=== PATIENT | male | born 1955 | race African-American/Black ===

== ENCOUNTER 2016-12-16 03:47 | Inpatient (IN) | payer MEDICARE ==
[~2016-12-16] VITALS: Ht 182.9 cm; Wt 103.6 kg
[2016-12-16 03:53] VITALS: BP 144/78; PULSE 82; RESP 16; TEMP 100.2; O2SAT 98
[2016-12-16] MEDS ORDERED: SODIUM CHLORIDE 0.9% FLUSH 10 ML FLUSH IVF PRN (04:15)
[2016-12-16] MEDS ORDERED: FURO40TA PO (04:21)
[2016-12-16] MEDS ORDERED: GABA800T PO (04:21)
[2016-12-16] MEDS ORDERED: MORP1TAB25 PO (04:23)
[2016-12-16] MEDS ORDERED: LOSA100T PO (04:23)
[2016-12-16] MEDS ORDERED: HYDR-3583 PO (04:23)
[2016-12-16] MEDS ORDERED: CARV12.52 PO (04:23)
[2016-12-16 04:26] VITALS: BP 144/72; PULSE 79; RESP 16; O2SAT 97
[2016-12-16 04:36] LABS: AUTOMATED NEUTROPHIL # 4.4 TH/MM3 (1.8-7.7); BASOPHIL # 0.1 TH/MM3 (0-0.2); BASOPHIL % 1.8 % (0.0-2.0); EOSINOPHIL # 0.5 TH/MM3 (0-0.4); EOSINOPHIL % 6.6 % (0.0-4.0); HEMATOCRIT 30.8 % (39.0-51.0); HEMO FLAGS DIFF FINAL; LYMPH % 27.4 % (9.0-44.0); LYMPHOCYTE # 2.1 TH/MM3 (1.0-4.8); MEAN CELL VOLUME 85.3 FL (80.0-100.0); MEAN CORPUSCULAR HEMOGLOBIN 27.4 PG (27.0-34.0); MEAN CORPUSCULAR HGB CONC 32.1 % (32.0-36.0); MONO % 7.1 % (0.0-8.0); NEUT % 57.1 % (16.0-70.0); PLATELET COUNT 238 TH/MM3 (150-450); RED BLOOD COUNT 3.61 MIL/MM3 (4.50-5.90); RED CELL DISTRIBUTION WIDTH 14.4 % (11.6-17.2); WHITE BLOOD COUNT 7.7 TH/MM3 (4.0-11.0)
--- NOTE | 2016-12-16 04:59 | PD ---
HPI Chief Complaint: Diabetic Time Seen by Provider: 04:31 Travel History International Travel<30 days: No Contact w/Intl Traveler<30days: No Traveled to known affect area: No History of Present Illness HPI Patient is a 61-year-old male with history of hypertension, hyperlipidemia, chronic pain, CHF, diabetes currently taking novalog 70/30, presents to ER with complaints of hypoglycemia. Patient reports that he is here visiting from [place] , reports that at baseline, he has the "shakes." Reports that today, he feels as if his "shakes" are worse. Reports that he checked his blood sugar and it was 98. Reports that this is low for him as his blood sugar normally runs at 150. Reports that he felt lightheaded today and "shakey" and thought that this could have been from having low blood sugars. Reports that when EMS arrived on scene, his BS was 88 which is very low for him. Reports that he has been eating and drinking like his normal self. Patient bs in triage was 123. Patient reports that he feels like his normal self, just "a little shakier than normal". wanted patient to be evaluated as they are leaving to go back home tomorrow around noon. PFSH Past Medical History High Cholesterol: Yes Congestive Heart Failure: Yes Diabetes: Yes Hypertension: Yes Medical other: Yes (hx of acute renal failure) Past Surgical History Surgical History: No Previous Surgery Allergies-Medications (Allergen,Severity, Reaction): Coded Allergies: No Known Allergies (Verified , 12/16/16) Reported Meds & Prescriptions Reported Meds & Active Scripts Active Reported Hydrocodone-Acetaminophen 10-325 mg Tab 1 Tab PO Q6H PRN Morphine ER (Morphine Sulfate) 30 Mg Tab 30 Mg PO Q8H Losartan (Losartan Potassium) 100 Mg Tab 100 Mg PO DAILY Carvedilol 12.5 Mg Tab 12.5 Mg PO BID Furosemide 40 Mg Tab 40 Mg PO BID Gabapentin 800 Mg Tab 800 Mg PO QID Review of Systems General / Constitutional: No: Fever Eyes: No: Visual changes HENT: No: Headaches Cardiovascular: No: Chest Pain or Discomfort Respiratory: No: Shortness of Breath Gastrointestinal: No: Abdominal Pain Genitourinary: No: Dysuria Musculoskeletal: No: Pain Skin: No Rash Neurologic: Positive: Weakness Psychiatric: No: Depression Endocrine: No: Polydipsia Hematologic/Lymphatic: No: Easy Bruising Physical Exam Narrative GENERAL: NAD, nontoxic SKIN: Focused skin assessment warm/dry. HEAD: Atraumatic. Normocephalic. EYES: Pupils equal and round. No scleral icterus. No injection or drainage. ENT: No nasal bleeding or discharge. Mucous membranes pink and moist. NECK: Trachea midline. No JVD. CARDIOVASCULAR: Regular rate and rhythm. No murmur appreciated. RESPIRATORY: No accessory muscle use. Clear to auscultation. Breath sounds equal bilaterally. GASTROINTESTINAL: Abdomen soft, non-tender, nondistended. Hepatic and splenic margins not palpable. MUSCULOSKELETAL: No obvious deformities. No clubbing. No cyanosis. No edema. NEUROLOGICAL: Awake and alert. No obvious cranial nerve deficits. Motor grossly within normal limits. Normal speech. PSYCHIATRIC: Appropriate mood and affect; insight and judgment normal. Data Data Last Documented VS Vital Signs Date Time Temp Pulse Resp B/P (MAP) Pulse Ox O2 Delivery O2 Flow Rate FiO2 12/16/16 04:26 79 16 144/72 (96) 97 Room Air 12/16/16 03:53 100.2 Orders Orders Electrocardiogram (12/16/16 04:10) Complete Blood Count With Diff (12/16/16 04:10) Comprehensive Metabolic Panel (12/16/16 04:10) Beta Hydroxybutyrate (Acetone) (12/16/16 04:10) Urinalysis - C+S If Indicated (12/16/16 04:10) Blood Glucose (12/16/16 04:10) Blood Glucose (12/16/16 04:40) Blood Glucose (12/16/16 04:10) Sodium Chloride 0.9% Flush (Ns Flush) (12/16/16 04:15) Bladder Scan PRN (12/16/16 04:50) Chest, Single Ap (12/16/16 04:58) Urinary Catheter Insert/Apply (12/16/16 05:04) Calcium Gluconate Inj (Calcium Gluconate (12/16/16 05:15) Admit Order (Ed Use Only) (12/16/16 06:23) Consult Nephrology (12/16/16 ) Labs Laboratory Tests Test 12/16/16 04:30 12/16/16 05:10 White Blood Count 7.7 TH/MM3 Red Blood Count 3.61 MIL/MM3 Hemoglobin 9.9 GM/DL Hematocrit 30.8 % Mean Corpuscular Volume 85.3 FL Mean Corpuscular Hemoglobin 27.4 PG Mean Corpuscular Hemoglobin Concent 32.1 % Red Cell Distribution Width 14.4 % Platelet Count 238 TH/MM3 Mean Platelet Volume 9.1 FL Neutrophils (%) (Auto) 57.1 % Lymphocytes (%) (Auto) 27.4 % Monocytes (%) (Auto) 7.1 % Eosinophils (%) (Auto) 6.6 % Basophils (%) (Auto) 1.8 % Neutrophils # (Auto) 4.4 TH/MM3 Lymphocytes # (Auto) 2.1 TH/MM3 Monocytes # (Auto) 0.6 TH/MM3 Eosinophils # (Auto) 0.5 TH/MM3 Basophils # (Auto) 0.1 TH/MM3 CBC Comment DIFF FINAL Differential Comment Blood Urea Nitrogen 92 MG/DL Creatinine 8.54 MG/DL Random Glucose 102 MG/DL Total Protein 7.8 GM/DL Albumin 3.8 GM/DL Calcium Level 7.2 MG/DL Alkaline Phosphatase 68 U/L Aspartate Amino Transf (AST/SGOT) 34 U/L Alanine Aminotransferase (ALT/SGPT) 24 U/L Total Bilirubin 0.2 MG/DL Sodium Level 140 MEQ/L Potassium Level 4.6 MEQ/L Chloride Level 105 MEQ/L Carbon Dioxide Level 27.2 MEQ/L Anion Gap 8 MEQ/L Estimat Glomerular Filtration Rate 8 ML/MIN Protein Corrected Calcium 6.9 MG/DL B-Hydroxybutyrate 0.13 MMOL/L Urine Color YELLOW Urine Turbidity CLEAR Urine pH 5.5 Urine Specific [place] 1.017 Urine Protein 100 mg/dL Urine Glucose (UA) NEG mg/dL Urine Ketones NEG mg/dL Urine Occult Blood TRACE Urine Nitrite NEG Urine Bilirubin NEG Urine Urobilinogen LESS THAN 2.0 MG/DL Urine Leukocyte Esterase NEG Urine RBC 2 /hpf Urine WBC 1 /hpf Urine Squamous Epithelial Cells <1 /hpf Urine Bacteria RARE /hpf Urine Hyaline Casts 11 /lpf Urine Mucus FEW /lpf Microscopic Urinalysis Comment CULT NOT INDICATED MDM Medical Decision Making Medical Screen Exam Complete: Yes Emergency Medical Condition: Yes Interpretation(s) EKG at 0419: NSR at 83bpm, qt/qtc: 374/414, no acute st or t wave changes Vital Signs Date Time Temp Pulse Resp B/P (MAP) Pulse Ox O2 Delivery O2 Flow Rate FiO2 12/16/16 04:26 79 16 144/72 (96) 97 Room Air 12/16/16 04:17 82 15 97 Room Air 12/16/16 03:53 100.2 82 16 144/78 (100) 98 Room Air Differential Diagnosis Differential includes hypoglycemia, electrolyte abnormality, UTI, ACS, arrhythmia, pneumonia Narrative Course Patient is a 61 year old male who presents to emergency room with complaints of possible hypoglycemic episode. Patient's blood sugar is 123, patient reports that he is feeling better at this time. Patient's only complaint is urinary retention. He does not have history of BPH, reports that he has had a history of renal insufficiency and reports that his perforating machine operator was thinking about starting dialysis on him. Given that patient has not urinated since last night, will check bladder scan. Basic labs ordered, will monitor patient on cardiac catheterization technologist. Bladder scan shows a PVR of 707, will place barry catheter. CBC & BMP Diagram 12/16/16 04:30 Total Protein 7.8, Albumin 3.8, Calcium Level 7.2 *L, Alkaline Phosphatase 68, Aspartate Amino Transf (AST/SGOT) 34, Alanine Aminotransferase (ALT/SGPT) 24, Total Bilirubin 0.2 BUN 92/Creatine 8.54 - patient with renal failure. thinks that patient's GFR is 12. Patient reports that he discuss possible dialysis with his perforating machine operator at home, he is unsure of what his baseline creatinine is. Patient' s is concerned as patient does not appear like his normal self. Discussed need for admission to the hospital. would like to discuss this with her as well as family who live in the area before making this decision Patient and family agreeable to admission case reviewed with Dr. Rivera who accepts patient to their service Nephrology consulted Diagnosis Primary Impression: Acute urinary retention Additional Impressions: Renal failure (ARF), acute on chronic Uremia Admitting Information Admitting Physician Requests: Admit Nancie Tate DO Dec 16, 2016 04:59
[2016-12-16 05:02] LABS: BETA-HYDROXYBUTYRATE 0.13 MMOL/L (0.00-0.39); BICARBONATE 27.2 MEQ/L (21.0-32.0); POTASSIUM 4.6 MEQ/L (3.5-5.1); TOTAL BILIRUBIN ADULT 0.2 MG/DL (0.2-1.0)
[2016-12-16 05:09] LABS: CALCIUM-PROTEIN CORRECTED 6.9 MG/DL (8.5-10.1)
[2016-12-16] MEDS ORDERED: CALCIUM GLUCONATE INJ 1 GM in DEXTROSE 5% IN WATER 100ML INJ 100 ML IV ONE ×2 (05:15)
[2016-12-16 05:28] LABS: BACTERIA, URINE RARE /hpf; BLOOD, URINE TRACE (NEG); GLUCOSE,URINE NEG (NEG); HYALINE CAST, URINE 11 /lpf (RARE); KETONE, URINE NEG (NEG); MUCUS URINE FEW /lpf (OCC); NITRITE,URINE NEG (NEG); PH, URINE 5.5 (5.0-8.5); SQUAMOUS EPITHELIAL CELL URINE <1 /hpf (0-5); URINE COLOR YELLOW (YELLW/STRAW)
[2016-12-16 05:29] LABS: COMMENT (UR) CULT NOT INDICATED; CULTURE IF INDICATED CULT NOT INDICATED
--- NOTE | 2016-12-16 06:07 | RADRPT ---
EXAM DATE/TIME: 12/16/2016 05:38 [facility] COMPARISON: No previous studies available for comparison. INDICATIONS : Palpitations. MEDICAL HISTORY : Diabetes mellitus type II. SURGICAL HISTORY : None. ENCOUNTER: Initial ACUITY: 1 day PAIN SCORE: 0/10 LOCATION: Bilateral chest FINDINGS: A single view of the chest demonstrates the lungs to be symmetrically aerated without evidence of mas s, infiltrate or effusion. The cardiomediastinal contours are unremarkable. Osseous structures are intact. CONCLUSION: 1. No acute findings. Minimal dependent atelectasis in the lungs. Herb Grijalva MD on December 16, 2016 at 6:04 Board Certified Radiologist. This report was verified electronically.
[2016-12-16] MEDS ORDERED: SODIUM CHLORIDE 0.9% FLUSH 10 ML FLUSH IV FLUSH PRN (06:30)
[2016-12-16] MEDS ORDERED: NALOXONE HCL 0.4 MG/ML AMP IV PRN (06:30)
[2016-12-16] MEDS ORDERED: SENNOSIDES 8.6 MG TAB PO PRN (06:30)
[2016-12-16] MEDS ORDERED: ONDANSETRON HCL 4 MG/2 ML VIAL IVP PRN (06:30)
[2016-12-16] MEDS ORDERED: ACETAMINOPHEN 325 MG TAB PO PRN (06:30)
[2016-12-16] MEDS ORDERED: DEXTROSE 50% IN WATER 50 ML VIAL(D50) IV PRN (06:30)
[2016-12-16] MEDS ORDERED: LACTULOSE SYRUP 20 GM/30 ML CUP PO PRN (06:30)
[2016-12-16] MEDS ORDERED: GLUCAGON 1 MG/ML VIAL OTHER PRN (06:30)
[2016-12-16] MEDS: INSULIN ASPART SUPPLEMENTAL SCALE SQ SCH ×4 (07:00→22:14)
[2016-12-16 07:39] LABS: CKMB 15.1 NG/ML (0.5-3.6)
--- NOTE | 2016-12-16 07:49 | EKG ---
Date Performed: 12/16/2016 Time Performed: 04:19:03 PTAGE: 61 years EKG: Sinus rhythm NORMAL ECG NO PREVIOUS TRACING DOCTOR: John Sarah Interpretating Date/Time 12/16/2016 07:47:45
[2016-12-16] MEDS: SODIUM CHLORIDE 0.9% FLUSH 10 ML FLUSH IV FLUSH SCH ×2 (07:53→22:15)
[2016-12-16] MEDS: CARVEDILOL 12.5 MG TAB PO SCH ×2 (07:53→22:12)
[2016-12-16 07:54] VITALS: BP 162/95; PULSE 78; RESP 16; TEMP 98.8; O2SAT 96
[2016-12-16] MEDS: DOCUSATE SODIUM 50 MG/SENNA 8.6 MG TAB PO SCH ×2 (07:54→22:14)
--- NOTE | 2016-12-16 09:23 | HHI.HP ---
[facility] Non-Staff Admission Diagnosis Uremia, Acute Renal Failure Diagnoses: Chief Complaint: jerking movements Travel History International Travel<30 Days: No Contact w/Intl Traveler <30 Da: No Traveled to Known Affected Are: No History of Present Illness Written by Jessica Cruz, acting as scribe for Dr. Fabian on 12/16/16 at 09:15. This note was transcribed by scribADRIAN Bergman. I, Dr. Geovany Fabian personally performed the history, physical exam, and medical decision making; and confirmed the accuracy of the information in the transcribed note. Authenticated by Dr. Geovany Fabian on 12/16/16 at 21:35. 61-year-old male visiting from [place] with history of diabetes mellitus, hypertension, chronic kidney disease unknown baseline, hyperlipidemia, CHF, presents with a 2 day history of body jerking/twitching. The patient is currently awake, alert, oriented to person, states he is in [place] but needs a lot of cues to be able to say he's in a hospital, then states the date is October or November 2016. He is a very poor historian and continuously repeats that he's here for full body jerking since Thursday 12/14 and that is why he came to the hospital. He is unable to give a timeline of events leading up to his admission. Most of the history supplemented with information from EMR. Per ER MD 's note, the patient's blood sugars have been running low for him, in the 80s- 90s. His blood sugars are normally around 150. He has felt lightheaded and shaky recently which he believes is secondary to the low blood sugars. Denies any recent decreased oral intake, nausea/vomiting, or diarrhea. According to the patient and his , he has been diagnosed with CKD, but unknown baseline. He follows with a correctional guard in [place] and have discussed dialysis in the past but currently not on dialysis. While in the ER, the patient complained of some urinary retention, post void residual bladder scan done, showed over 700cc urine , therefore Rodriguez catheter placed. The patient has no other medical complaints at this time including no fevers/chills, chest pain, shortness of breath, or abdominal pain. Review of Systems ROS Limitations: Altered Mental Status, Poor Historian Except as stated in HPI: all other systems reviewed are Neg Past Family Social History Past Medical History Hypertension Hyperlipidemia Diabetes mellitus CHF Chronic kidney disease Chronic back pain Past Surgical History Denies any prior surgeries. Reported Medications Hydrocodone-Acetaminophen 10-325 mg Tab 1 Tab PO Q6H PRN Morphine ER (Morphine Sulfate) 30 Mg Tab 30 Mg PO Q8H Losartan (Losartan Potassium) 100 Mg Tab 100 Mg PO DAILY Carvedilol 12.5 Mg Tab 12.5 Mg PO BID Furosemide 40 Mg Tab 40 Mg PO BID Gabapentin 800 Mg Tab 800 Mg PO QID Allergies: Coded Allergies: No Known Allergies (Verified , 12/16/16) Active Ordered Medications Current Medications Medications (Trade) Dose Ordered Sig/Mick Route Start Time Stop Time Status Last Admin (D50w (Vial) Inj) 50 ml UNSCH PRN IV 12/16/16 06:30 (Glucagon Inj) 1 mg UNSCH PRN OTHER 12/16/16 06:30 (NovoLOG SUPPLEMENTAL SCALE) 1 ACHS SLIDING SCALE SQ 12/16/16 07:00 12/16/16 11:03 (Coreg) 12.5 mg BID PO 12/16/16 09:00 12/16/16 07:53 ([place] 10-325 Mg) 0.5 tab Q6H PRN PO 12/16/16 06:30 (NS Flush) 2 ml UNSCH PRN IV FLUSH 12/16/16 06:30 (NS Flush) 2 ml BID IV FLUSH 12/16/16 09:00 12/16/16 07:53 (Tylenol) 650 mg Q4H PRN PO 12/16/16 06:30 (Zofran Inj) 4 mg Q6H PRN IVP 12/16/16 06:30 (Narcan Inj) 0.4 mg UNSCH PRN IV 12/16/16 06:30 (Giovana-Colace) 1 tab BID PO 12/16/16 09:00 12/16/16 07:54 (Senokot) 17.2 mg Q12H PRN PO 12/16/16 06:30 (Lactulose Liq) 30 ml DAILY PRN PO 12/16/16 06:30 Sodium Chloride 1,000 ml @ 125 mls/hr Q8H IV 12/16/16 09:30 12/16/16 17:29 12/16/16 11:04 Family History Denies any family history of heart disease, diabetes, or cancers. Social History Denies any tobacco, alcohol, or illicit drug use. Visiting from [facility] Physical Exam Vital Signs Vital Signs Date Time Temp Pulse Resp B/P (MAP) Pulse Ox O2 Delivery O2 Flow Rate FiO2 12/16/16 07:54 98.8 78 16 162/95 (117) 96 Room Air 12/16/16 04:26 79 16 144/72 (96) 97 Room Air 12/16/16 04:17 82 15 97 Room Air 12/16/16 03:53 100.2 82 16 144/78 (100) 98 Room Air Physical Exam GENERAL: Well-nourished, well-developed middle aged AA male patient in [facility]. SKIN: Warm and dry. No rash. HEAD: Normocephalic. Atraumatic. EYES: Pupils equal and round. No scleral icterus. No injection or drainage. ENT: No nasal bleeding or discharge. Mucous membranes pink and moist. NECK: Supple. Trachea midline. CARDIOVASCULAR: Regular rate and rhythm. S1, S2 noted. No murmur appreciated. RESPIRATORY: No accessory muscle use. Clear to auscultation. Breath sounds equal bilaterally. GASTROINTESTINAL: Abdomen soft, non-tender, nondistended. Normoactive bowel sounds x4. MUSCULOSKELETAL: No obvious deformities. Trace bilateral lower extremity edema. NEUROLOGICAL: Awake and alert. No obvious cranial nerve deficits. Motor grossly within normal limits. 5/5 muscle strength in bilateral upper and lower extremities. Normal speech. PSYCHIATRIC: Calm mood however intermittently slow to answer questions, poor insight currently. Laboratory Laboratory Tests Test 12/16/16 04:30 12/16/16 05:10 12/16/16 06:40 White Blood Count 7.7 Red Blood Count 3.61 Hemoglobin 9.9 Hematocrit 30.8 Mean Corpuscular Volume 85.3 Mean Corpuscular Hemoglobin 27.4 Mean Corpuscular Hemoglobin Concent 32.1 Red Cell Distribution Width 14.4 Platelet Count 238 Mean Platelet Volume 9.1 Neutrophils (%) (Auto) 57.1 Lymphocytes (%) (Auto) 27.4 Monocytes (%) (Auto) 7.1 Eosinophils (%) (Auto) 6.6 Basophils (%) (Auto) 1.8 Neutrophils # (Auto) 4.4 Lymphocytes # (Auto) 2.1 Monocytes # (Auto) 0.6 Eosinophils # (Auto) 0.5 Basophils # (Auto) 0.1 CBC Comment DIFF FINAL Differential Comment Blood Urea Nitrogen 92 Creatinine 8.54 Random Glucose 102 Total Protein 7.8 Albumin 3.8 Calcium Level 7.2 Alkaline Phosphatase 68 Aspartate Amino Transf (AST/SGOT) 34 Alanine Aminotransferase (ALT/SGPT) 24 Total Bilirubin 0.2 Sodium Level 140 Potassium Level 4.6 Chloride Level 105 Carbon Dioxide Level 27.2 Anion Gap 8 Estimat Glomerular Filtration Rate 8 Protein Corrected Calcium 6.9 Total Creatine Kinase 1302 Creatine Kinase MB 15.1 Creatine Kinase MB % 1.2 B-Hydroxybutyrate 0.13 Urine Color YELLOW Urine Turbidity CLEAR Urine pH 5.5 Urine Specific [place] 1.017 Urine Protein 100 Urine Glucose (UA) NEG Urine Ketones NEG Urine Occult Blood TRACE Urine Nitrite NEG Urine Bilirubin NEG Urine Urobilinogen LESS THAN 2.0 Urine Leukocyte Esterase NEG Urine RBC 2 Urine WBC 1 Urine Squamous Epithelial Cells <1 Urine Bacteria RARE Urine Hyaline Casts 11 Urine Mucus FEW Microscopic Urinalysis Comment CULT NOT INDICATED Ammonia 57 Result Diagram: 12/16/1642912/16/16429 Caprini VTE Risk Assessment Caprini VTE Risk Assessment: Mod/High Risk (score >= 2) Caprini Risk Assessment Model Point Value = 1 Point Value = 2 Point Value = 3 Point Value = 5 Age 41-60 Minor surgery BMI > 25 kg/m2 Swollen legs Varicose veins or History of unexplained or recurrent spontaneous Oral contraceptives or hormone replacement Sepsis (< 1 month) Serious lung disease, including pneumonia (< 1 month) Abnormal pulmonary function Acute myocardial infarction Congestive heart failure (< 1 month) History of inflammatory bowel disease Medical patient at bed rest Age 61-74 Arthroscopic surgery Major open surgery (> 45 min) Laparoscopic surgery (> 45 min) Malignancy Confined to bed (> 72 hours) Immobilizing plaster cast Central venous access Age >= 75 History of VTE Family history of VTE Factor V Leiden Prothrombin [id number] Lupus anticoagulant Anticardiolipin antibodies Elevated serum homocysteine Heparin-induced thrombocytopenia Other congenital or acquired thrombophilia Stroke (< 1 month) Elective arthroplasty Hip, pelvis, or leg fracture Acute spinal cord injury (< 1 month) Prophylaxis Regimen Total Risk Factor Score Risk Level Prophylaxis Regimen 0-1 Low Early ambulation 2 Moderate Order ONE of the following: *Sequential Compression Device (SCD) *Heparin 5000 units SQ BID 3-4 Higher Order ONE of the following medications: *Heparin 5000 units SQ TID *Enoxaparin/Lovenox 40 mg SQ daily (WT < 150 kg, CrCl > 30 mL/min) *Enoxaparin/Lovenox 30 mg SQ daily (WT < 150 kg, CrCl > 10-29 mL/min) *Enoxaparin/Lovenox 30 mg SQ BID (WT < 150 kg, CrCl > 30 mL/min) AND/OR *Sequential Compression Device (SCD) 5 or more Highest Order ONE of the following medications: *Heparin 5000 units SQ TID (Preferred with Epidurals) *Enoxaparin/Lovenox 40 mg SQ daily (WT < 150 kg, CrCl > 30 mL/min) *Enoxaparin/Lovenox 30 mg SQ daily (WT < 150 kg, CrCl > 10-29 mL/min) *Enoxaparin/Lovenox 30 mg SQ BID (WT < 150 kg, CrCl > 30 mL/min) AND *Sequential Compression Device (SCD) Assessment and Plan Problem List: (1) Rhabdomyolysis ICD Code: M62.82 - Rhabdomyolysis (2) Acute metabolic encephalopathy ICD Code: G93.41 - Metabolic encephalopathy (3) Renal failure (ARF), acute on chronic ICD Code: N17.9 - Acute kidney failure, unspecified; N18.9 - Chronic kidney disease, unspecified Status: Acute (4) Acute urinary retention ICD Code: R33.8 - Other retention of urine Status: Acute (5) Uremia ICD Code: N19 - Unspecified kidney failure Status: Acute Assessment and Plan 61-year-old male visiting from [place] with history of diabetes mellitus, hypertension, chronic kidney disease unknown baseline, hyperlipidemia, CHF, presents with a 2 day history of body jerking/twitching. Acute Renal Failure: with hx of CKD, unknown baseline however has been discussing with his correctional guard in [place] regarding starting dialysis. BUN 92, Cr 8.54, GFR 8 upon arrival; only previous labs available is Cr 1.2 in 2001. -give gentle IVF and recheck BMP -avoid nephrotoxins, holding patient's Losartan -Check renal U/S -consult nephrology Urinary Retention: patient with post void residual over 700cc in the ED, Rodriguez placed. -continue Rodriguez -check renal U/S as above -monitor Is&Os Metabolic Encephalopathy: suspect secondary to ARF as above. +uremia, + hyperammonemia. -treat renal failure as above -monitor neuro checks Acute Hypocalcemia with [place]: Protein Corrected [place] 6.9. Patient's main complaint is full body jerks/twitches x2 days. Suspect secondary to hypocalcemia -check EEG to rule out seizure focus -Given IV Calcium Gluconate x2G -check magnesium -Monitor on telemetry -Repeat BMP, replace as needed Rhabdomyolysis: with renal failure as above. CPK 1302. -give IVF hydration x1L -monitor CPK Diabetes Mellitus: with hypoglycemia. -holding patient's insulin -monitor Accu-checks, cover with SSI HTN/CHF: chronic, stable -continue patient's home medications -clonidine prn -monitor BP, adjust antihypertensives as needed DVT Prophylaxis: teds/SCDs; hold chemoprophylaxis until evaluation by nephrology Discussed Condition With Patient, [employer] Jessica Cruz PA-C Dec 16, 2016 09:23 Mahi Fabian DO Dec 16, 2016 21:35
[2016-12-16] MEDS ORDERED: SODIUM CHLOR 0.9% 1000 ML INJ 1,000 ML IV SCH (09:30)
[2016-12-16] MEDS ORDERED: CALCIUM GLUCONATE INJ 1 GM in SODIUM CHLORIDE 0.9% INJ 100 ML IV ONE (10:30)
--- NOTE | 2016-12-16 13:55 | RADRPT ---
EXAM DATE/TIME: 12/16/2016 13:16 [facility] COMPARISON: No previous studies available for comparison. INDICATIONS : Increased Bun and Creatinine. MEDICAL HISTORY : Hypertension. Congestive heart failure. ARF. Hyperlipidemia. Diabetic. SURGICAL HISTORY : None. ENCOUNTER: Initial ACUITY: 1 day PAIN SCORE: 0/10 LOCATION: Bilateral flank MEASUREMENTS: RIGHT KIDNEY: 10.7 x 4.4 x 5.0 cm LEFT KIDNEY: 10.6 x 5.3 x 5.2 cm FINDINGS: RIGHT KIDNEY: Renal cortex is normal in thickness and increased echotexture. No hydronephrosis, stone, or mass. LEFT KIDNEY: Renal cortex is normal in thickness and increased echotexture. No hydronephrosis, stone, or mass. BLADDER: Rodriguez catheter present decompressing the urinary bladder. CONCLUSION: 1. Echogenic kidneys which can be seen with medical renal disease. 2. Urinary bladder decompressed by Rodriguez catheter. Jeffrey Amor MD on December 16, 2016 at 13:52 Board Certified Radiologist. This report was verified electronically.
[2016-12-16 14:43] LABS: BICARBONATE 24.6 MEQ/L (21.0-32.0); MAGNESIUM 2.7 MG/DL (1.5-2.5); POTASSIUM 4.5 MEQ/L (3.5-5.1)
[2016-12-16 16:18] VITALS: BP 138/73; PULSE 78; RESP 16; TEMP 99.3; O2SAT 98
--- NOTE | 2016-12-16 16:32 | MG ---
cc: HAMZAH MARMOLEJO MD Lab No: Date: 12/16/2016 Age: Sex: M Race: DATE OF [address] Emerson. PAST MEDICAL HISTORY 1. Admitted for hypoglycemia, shakes, felt lightheaded. 2. History of hypercholesteremia. 3. Hypertension. 4. Diabetes. 5. Congestive heart failure. 6. And chronic pain. MEDICATIONS 1. Insulin aspart. 2. Senokot. 3. Coreg. DESCRIPTION There is slowing of the background activity bilateral and symmetrica in the theta range with occasional slowing in the the bilateral frontal in the delta range. During the recording there are evident triphasic waves,with occasional spikes and sharp waves. Hyperventilation was not done. Photic stimulation did not elicit driving response. There were no electrographic seizures noted during the recording. INTERPRETATION This is an abnormal awake EEG. There is frontal intermittent rhythmic delta activity (FIRDA). There is generalized and background slowing that may indicate an encephalopathic pattern. The triphasic waves may be related to metabolic encephalopathy. There are intermittent epileptogenic activity during the recording. There was no electrographic seizure. Clinical correlation is recommended. Hamzah Marmolejo MD RGO/KK /4:08 PM /4:15 PM MTDD
[2016-12-16 17:01] VITALS: BP 143/72; PULSE 83; RESP 20; TEMP 98.7; O2SAT 96
--- NOTE | 2016-12-16 19:42 | MB ---
cc: ALESSIO RECINOS MD DATE OF CONSULTATION 12/16/2016 REASON FOR CONSULTATION End-stage renal disease with very high BUN and creatinine. HISTORY OF PRESENT ILLNESS This is a 61-year-old male with past medical history of hypertension, diabetes mellitus, chronic kidney disease, hyperlipidemia, ischemic heart disease, congestive heart failure, came with jerking movements of upper arms and shoulder off and on. I was called to see the patient because of high BUN and creatinine. The patient has known history of chronic kidney disease. He has been following with his food vendor in [place] and was discussed about the possibility of dialysis and he was to go on peritoneal dialysis. The patient has creatinine of around 4 according to the after she spoke to his food vendor when he was seen by his food vendor last time. The patient has urinary retention in the ER and it was found that he has 700 mL of urine after the Rodriguez catheter was placed, so there must be an element of acute kidney injury because of that. The patient denies any nausea or vomiting but his appetite is not very good. He does not have any shortness of breath and according to the sometimes he seems to be a little bit more confused. Also when he came in here it was found that his calcium was low and he was given some intravenous calcium. PAST MEDICAL HISTORY 1. Hypertension. 2. Diabetes mellitus. 3. Chronic kidney disease. 4. Hyperlipidemia. 5. Ischemic heart disease. 6. Congestive heart failure. 7. Chronic back pain. PAST SURGICAL HISTORY There is no history of surgery. REVIEW OF SYSTEMS The patient has generalized weakness, feeling tired. There is mild nausea. No vomiting. He has decreased appetite and been feeling weak and tired and sleepy most of the time. There is no history of nausea, vomiting or diarrhea. He denies any dysuria or difficulty passing urine but he has almost 700 mL of urine came out after he has a Rodriguez catheter inserted. The patient has history of jerky movement of his upper arm and shoulder going on off and on for last 2 days and that was one of the reasons he was brought to the emergency department. The patient lives in [place], [place] and visiting here and was supposed to go back today but they stayed longer now because he is in the hospital. SOCIAL HISTORY The patient is , lives in [place] and there is no history of smoking or alcoholism. FAMILY HISTORY Noncontributory. ALLERGIES NO KNOWN DRUG ALLERGIES. MEDICATIONS Currently he is gettin. Normal saline at 125 an hour. 2. Coreg 12.5 mg b.i.d. 3. Giovana-Colace 1 tablet b.i.d. 4. Insulin aspart sliding scale. 5. Zofran. 6. Narcan as needed. 7. He received calcium gluconate IV. IMAGING STUDIES The patient has chest x-ray done which shows that he has no acute findings. Some atelectasis in the lung. Ultrasound of the kidneys was done which shows that both kidneys are normal in size and echogenic and urinary bladder is decompressed by the Rodriguez catheter. ASSESSMENT/PLAN 1. Chronic kidney disease and some acute worsening. 2. Elevated creatinine kinase with some rhabdomyolysis. 3. Hypocalcemia. 4. Possibility of uremia. 5. Diabetes mellitus. 6. Hypertension. 7. Anemia. The patient has chronic kidney disease and his baseline creatinine was around 4 and with this acute worsening and now could be related to urinary retention or rhabdomyolysis. He has very high BUN and creatinine, although there is some improvement in the creatinine to 7.8 after the first reading of 8.4. If he has significant improvement then possibly he will not need dialysis, otherwise he will need to start on dialysis. I have discussed this with the and they still want him to go for peritoneal dialysis so we can start him on hemodialysis here and he can get the peritoneal dialysis catheter once he goes back to [place]. The wanted me to talk to his primary food vendor so I will give him a call and discuss the plan with him. Thank you for the consultation and I will follow the patient while he is in the hospital. MD ANÍBAL Pimentel/ABDIRAHMAN /4:44 PM /7:25 PM
[2016-12-16 22:02] VITALS: BP 172/81; PULSE 79; RESP 18; TEMP 99.3; O2SAT 99
[2016-12-16] MEDS: CALCIUM/VITAMIN D 250 MG/125 U TAB PO SCH (22:14)
[2016-12-17] VITALS (16 sets, daily range): BP systolic 140–217; BP diastolic 78–100; PULSE 65–86; RESP 18–21; TEMP 98.3–99.3; O2SAT 92–100
[2016-12-17] MEDS: INSULIN ASPART SUPPLEMENTAL SCALE SQ SCH ×4 (06:22→22:04)
[2016-12-17 07:51] LABS: BICARBONATE 25.3 MEQ/L (21.0-32.0); POTASSIUM 4.5 MEQ/L (3.5-5.1)
[2016-12-17 08:03] LABS: AUTOMATED NEUTROPHIL # 5.5 TH/MM3 (1.8-7.7); BASOPHIL % 0.4 % (0.0-2.0); EOSINOPHIL # 0.4 TH/MM3 (0-0.4); EOSINOPHIL % 4.6 % (0.0-4.0); HEMO FLAGS DIFF FINAL; LYMPH % 26.2 % (9.0-44.0); LYMPHOCYTE # 2.4 TH/MM3 (1.0-4.8); MEAN CELL VOLUME 85.8 FL (80.0-100.0); MEAN CORPUSCULAR HEMOGLOBIN 27.1 PG (27.0-34.0); MEAN CORPUSCULAR HGB CONC 31.6 % (32.0-36.0); MONO % 9.2 % (0.0-8.0); NEUT % 59.6 % (16.0-70.0); PLATELET COUNT 198 TH/MM3 (150-450); RED BLOOD COUNT 3.49 MIL/MM3 (4.50-5.90); RED CELL DISTRIBUTION WIDTH 14.2 % (11.6-17.2); WHITE BLOOD COUNT 9.3 TH/MM3 (4.0-11.0)
--- NOTE | 2016-12-17 08:06 | HHI.PR ---
Subjective Remarks Follow up for acute on CKD, hypocalcemia, body jerking movements. Patient is currently doing much better. Except for minor jerking movements, his body jerking movements have improved significantly. No chest pain, shortness of breath, fever, chills. at bedside. Objective Vitals Vital Signs Date Time Temp Pulse Resp B/P (MAP) Pulse Ox O2 Delivery O2 Flow Rate FiO2 12/17/16 07:33 98.6 79 20 217/98 (137) 96 12/17/16 07:30 200/100 (133) 12/17/16 03:45 150/78 (102) 12/17/16 03:40 98.7 78 18 182/88 (119) 92 12/17/16 03:00 74 12/17/16 00:46 140/82 (101) 168/78 (108) 12/17/16 00:27 99.3 76 18 188/89 (122) 99 12/17/16 00:12 74 12/16/16 22:02 99.3 79 18 172/81 (111) 99 12/16/16 17:03 12/16/16 17:01 98.7 83 20 143/72 (95) 96 12/16/16 16:18 99.3 78 16 138/73 (94) 98 Room Air I/O 12/16/16 12/16/16 12/16/16 12/17/16 12/17/16 12/17/16 06:59 14:59 22:59 06:59 14:59 22:59 Intake Total 200 ml 2100 ml 480 ml Output Total 450 ml 900 ml 1350 ml Balance -250 ml 1200 ml -870 ml Intake Oral 200 ml 480 ml IV Total 200 ml 1900 ml Output Urine Total 450 ml 900 ml 1350 ml Bladder Scan Volume Amount 707 ml 707 ml Result Diagram: 12/16/16 0430 12/17/16 0652 Imaging Last Impressions Chest X-Ray 12/16/16 0458 Signed Impressions: Service Date/Time: Friday, December 16, 2016 05:38 - CONCLUSION: 1. No acute findings. Minimal dependent atelectasis in the lungs. Herb Grijalva MD Renal Ultrasound 12/16/16 0000 Signed Impressions: Service Date/Time: Friday, December 16, 2016 13:16 - CONCLUSION: 1. Echogenic kidneys which can be seen with medical renal disease. 2. Urinary bladder decompressed by Rodriguez catheter. Jeffrey Amor MD Objective Remarks GENERAL: Alert, NAD. SKIN: Warm and dry. HEAD: Normocephalic. EYES: No scleral icterus. No injection or drainage. NECK: Supple, trachea midline. No JVD or lymphadenopathy. CARDIOVASCULAR: Regular rate and rhythm without murmurs, gallops, or rubs. RESPIRATORY: Breath sounds equal bilaterally. No accessory muscle use. GASTROINTESTINAL: Abdomen soft, non-tender, nondistended. MUSCULOSKELETAL: No cyanosis, or edema. BACK: Nontender without obvious deformity. No CVA tenderness. Procedures EEG 12/16/2016 INTERPRETATION This is an abnormal awake EEG. There is frontal intermittent rhythmic delta activity (FIRDA). There is generalized and background slowing that may indicate an encephalopathic pattern. The triphasic waves may be related to metabolic encephalopathy. There are intermittent epileptogenic activity during the recording. There was no electrographic seizure. Clinical correlation is recommended. A/P Problem List: (1) Rhabdomyolysis ICD Code: M62.82 - Rhabdomyolysis (2) Acute metabolic encephalopathy ICD Code: G93.41 - Metabolic encephalopathy (3) Renal failure (ARF), acute on chronic ICD Code: N17.9 - Acute kidney failure, unspecified; N18.9 - Chronic kidney disease, unspecified Status: Acute (4) Acute urinary retention ICD Code: R33.8 - Other retention of urine Status: Acute (5) Uremia ICD Code: N19 - Unspecified kidney failure Status: Acute Assessment and Plan 61-year-old male visiting from [place] with history of diabetes mellitus, hypertension, chronic kidney disease unknown baseline, hyperlipidemia, CHF, presents with a 2 day history of body jerking/twitching. Acute Renal Failure: with hx of CKD, unknown baseline however has been discussing with his supervisor engine assembly in [place] regarding starting dialysis. BUN 92, Cr 8.54, GFR 8 upon arrival; only previous labs available is Cr 1.2 in 2001. - Creatinine is slightly improved. However, patient likely needs dialysis per Nephrology. - avoid nephrotoxins, holding patient's Losartan - renal U/S is consistent with medical renal disease. Urinary Retention: patient with post void residual over 700cc in the ED, Rodriguez placed. - continue Rodriguez Metabolic Encephalopathy: suspect secondary to ARF as above. +uremia, + hyperammonemia. - Expect improvements with dialysis. - monitor neuro checks - EEG is abnormal. We will repeat EEG today. If abnormal, we will consult Neurology for seizure. Acute Hypocalcemia with Tetany: Protein Corrected Caclium 6.9. Patient's main complaint is full body jerks/twitches x2 days. Suspect secondary to hypocalcemia -Given IV Calcium Gluconate x2g. Calcium improved to 8.1 corrected. - magnesium 2.7. -Monitor on telemetry Rhabdomyolysis: with renal failure as above. CPK 1302 --> 760. Diabetes Mellitus: with hypoglycemia. -holding patient's insulin -monitor Accu-checks, cover with SSI Hypertension - continue Labetalol 100mg Q12hrs, Nifedipine 60mg Qday. Full code. SCDs. Discussed with RN, obstetrical tech. Mahi Fabian DO Dec 17, 2016 08:06
[2016-12-17 08:09] LABS: CKMB 5.2 NG/ML (0.5-3.6)
[2016-12-17] MEDS ORDERED: cloNIDine HCL 0.1 MG TAB PO PRN ×2 (08:15→09:45)
[2016-12-17] MEDS: CARVEDILOL 12.5 MG TAB PO SCH ×2 (08:59→20:21)
[2016-12-17] MEDS: NIFEdipine 60 MG SUSTAINED RELEASE TAB PO SCH (08:59)
[2016-12-17] MEDS: CALCIUM/VITAMIN D 250 MG/125 U TAB PO SCH ×2 (09:00→20:20)
[2016-12-17] MEDS: DOCUSATE SODIUM 50 MG/SENNA 8.6 MG TAB PO SCH ×2 (09:00→20:25)
[2016-12-17] MEDS: SODIUM CHLORIDE 0.9% FLUSH 10 ML FLUSH IV FLUSH SCH ×2 (09:01→20:21)
[2016-12-17] MEDS ORDERED: SODIUM CHLOR 0.9% 1000 ML INJ 1,000 ML IV PRN ×2 (09:38)
[2016-12-17] MEDS ORDERED: ACETAMINOPHEN 325 MG TAB PO PRN (09:45)
[2016-12-17] MEDS ORDERED: HEPARIN SODIUM - IV 10,000 UNITS/10 ML VIAL IVF PRN (09:45)
[2016-12-17] MEDS ORDERED: ALBUMIN HUMAN 25% 25 GM/100 ML BAGP IV PRN (09:45)
[2016-12-17] MEDS ORDERED: SODIUM CHLORIDE 0.9% FLUSH 10 ML FLUSH IV FLUSH PRN (09:45)
[2016-12-17] MEDS ORDERED: GELATIN 12 MM/7 MM FOAM TOP PRN (09:45)
[2016-12-17] MEDS ORDERED: ONDANSETRON HCL 4 MG/2 ML VIAL IV PRN (09:45)
[2016-12-17] MEDS ORDERED: EPOETIN ALFA 10,000 UNITS/ML VIAL IV PRN (09:45)
[2016-12-17] MEDS ORDERED: NITROGLYCERIN 0.4 MG SL 25 TABS/BTL SL PRN (09:45)
[2016-12-17] MEDS ORDERED: MANNITOL 12.5 GM/50 ML VIAL IV PRN (09:45)
[2016-12-17] MEDS ORDERED: diphenhydrAMINE HCL 25 MG CAP PO PRN (09:45)
[2016-12-17] MEDS ORDERED: VANCOMYCIN INJ 1,000 MG in SODIUM CHLOR 0.9% 250 ML INJ 250 ML IV SCH (10:00)
[2016-12-17 11:56] LABS: APTT (PATIENT) 21.7 SEC (24.3-30.1); PROTHROMBIN TIME - PATIENT 10.8 SEC (9.8-11.6)
[2016-12-17] MEDS ORDERED: MIDAZOLAM HCL 2 MG/2 ML VIAL ONE (13:27)
[2016-12-17] MEDS ORDERED: fentaNYL CITRATE 250 MCG/5 ML AMP ONE (13:27)
[2016-12-17] MEDS ORDERED: LIDOCAINE 2%/EPINEPHrine PF 1:200,000 20ML SDV ONE (13:32)
[2016-12-17] MEDS: ceFAZolin 2 GM PREMIX 50 ML IV SCH ×2 (14:00→19:44)
--- NOTE | 2016-12-17 14:23 | PD.RAD ---
Post Procedure Progress Note Pre Procedure Diagnosis: (1) Renal failure (ARF), acute on chronic Post Procedure Diagnosis: (1) Renal failure (ARF), acute on chronic Procedure Date: Dec 17, 2016 Supervising Radiologist: Valente East JR Proceduralist/Assist: Angy Vo RT(R), RT Sae(R) Anesthesia: Conscious Sedation Plan of Activity Patient to Unit: ROPU Patient Condition: Good See PACS Report for procedural detail/treatment Central Venous Access Device Procedure 1 Right Internal Jugular Hemodialysis Catheter Tunneled Placement dual lumen Yoruba: 15 Findings: Right IJ permcath in good position and functions well. OK to use. Plan Remove sutures at base of neck and holding catheter in place in 2-3 weeks. Jr. Cruzito,Valente Lyman MD Dec 17, 2016 14:23
[2016-12-17] MEDS ORDERED: HEPARIN SODIUM - IV 2,000 UNITS/2 ML VIAL IV FLUSH PRN (14:30)
[2016-12-17] MEDS ORDERED: SODIUM CHLORIDE 0.9% FLUSH 10 ML FLUSH IVF PRN (14:30)
--- NOTE | 2016-12-17 15:01 | RADRPT ---
EXAM DATE/TIME: 12/17/2016 13:13 [facility] COMPARISON: No previous studies available for comparison. INDICATIONS : Patient with end-stage renal disease in need of tunnelled dialysis catheter placement. MEDICAL HISTORY : HTN, HLD, Diabetes, CKD, CHF, Chronic back pain, Ischemic heart disease SURGICAL HISTORY : Denies surgery ENCOUNTER: Initial ACUITY: 3 days PAIN SCORE: 8/10 LOCATION: Low back FLUORO TIME: 0.7 minutes IMAGE SERIES: 0 SEDATION TIME: 30 minutes ACCESS: Right internal jugular vein SEDATION: 1.) 2 mg midazolam (Versed) IV 2.) 100 mcg fentanyl (Sublimaze) IV Prophylactic antibiotics were administered with appropriate pre-procedure timing. Vancomycin within 2 hours of procedure, Ancef (or alternative) within 1 hour of procedure. DEVICE: 1. 15 Bhutanese dual lumen 23 cm Melendez II Plus catheter PROCEDURE : 1. Ultrasound-guided venipuncture. 2. PermaCath placement. 3. Conscious sedation with continuous EKG and oximetry monitoring. The risks, benefits and alternatives to the procedure were explained and verbal and written consent w as obtained. The site was prepped in sterile fashion. Full sterile technique was used, including ca p, mask, sterile gloves and gown and a large sterile sheet. Hand hygiene and 2% chlorhexidine and/or betadine/alcohol prep was utilized per protocol for cutaneous antisepsis. The skin and subcutaneous tissues were infiltrated with local anesthetic solution. With ultrasound and fluoroscopic guidance a dermatotomy was created over the prescribed vein. A micr opuncture set was used to access the targeted vein and serial dilatation was performed to accept the prescribed length catheter. A subcutaneous tunnel was created in a retrograde fashion the catheter w as pulled through the tunnel. The catheter was flushed and assembled and locked with heparin. The c atheter was sutured in place. Conscious sedation was performed with the prescribed dosages and duration as above in the presence of an independent trained radiology nurse to assist in the monitoring of the patient. EKG and oximetry remained stable throughout the procedure. The patient tolerated the procedure well and there were n o complications. The patient was sent to post anesthesia recovery in stable condition. CONCLUSION: Uncomplicated right internal jugular vein PermaCath placement as above. Valente East Jr., MD on December 17, 2016 at 14:59 Board Certified Radiologist. This report was verified electronically.
--- NOTE | 2016-12-17 16:34 | HHI.NPPN ---
Subjective History of Present Illness 61-year-old male with past medical history of hypertension, diabetes mellitus, chronic kidney disease, hyperlipidemia, ischemic heart disease, congestive heart failure, came with jerking movements of upper arms and shoulder off and on. I was called to see the patient because of high BUN and creatinine. The patient has known history of chronic kidney disease. He has been following with his inventory control specialist in [place]. Additional Remarks Patient seen during HD, alert, confused, not in distress. Review of Systems General Constitutional: Fatigue Respiratory Lungs: SOB, Wheeze Cardiovascular Cardiac: SCOTT Objective Data Data Vital Signs Date Time Temp Pulse Resp B/P (MAP) Pulse Ox O2 Delivery O2 Flow Rate FiO2 12/17/16 11:51 160/90 (113) 12/17/16 11:28 98.3 82 21 200/91 (127) 95 12/17/16 09:59 96 21 12/17/16 07:33 98.6 79 20 217/98 (137) 96 12/17/16 07:30 200/100 (133) 12/17/16 03:45 150/78 (102) 12/17/16 03:40 98.7 78 18 182/88 (119) 92 12/17/16 03:00 74 12/17/16 00:46 140/82 (101) 168/78 (108) 12/17/16 00:27 99.3 76 18 188/89 (122) 99 12/17/16 00:12 74 12/16/16 22:02 99.3 79 18 172/81 (111) 99 12/16/16 17:03 12/16/16 17:01 98.7 83 20 143/72 (95) 96 -: 12/17/16 0652 12/17/16 0652 Physical Exam General Appearance: No Acute Distress, Comfortable Eyes Eye Exam: Pupils Equal Throat Throat Exam: Oral Mucosa Lajas & Moist Pulmonary Resp Exam: Breath Sounds Equal, No Distress, Rhonchi, Decreased Bases Cardiology CV Exam: Regular, Normal Sinus Rhythm Extremeties Extremities Exam: Moderate Edema, Pitting Edema Neurologic Neuro Exam: Alert, Awake Psychiatric Psych Exam: Appropriate Responses Assessment/Plan Assessment Summary: ANTWON/Acute Renal Failure, Anemia of CKD, Hypertension, CKD Stage IV Problem List: (1) Stage 4 chronic kidney disease ICD Codes: N18.4 - Chronic kidney disease, stage 4 (severe) (2) Acute urinary retention ICD Codes: R33.8 - Other retention of urine Status: Acute (3) Renal failure (ARF), acute on chronic ICD Codes: N17.9 - Acute kidney failure, unspecified; N18.9 - Chronic kidney disease, unspecified Status: Acute (4) Rhabdomyolysis ICD Codes: M62.82 - Rhabdomyolysis (5) Acute metabolic encephalopathy ICD Codes: G93.41 - Metabolic encephalopathy (6) Uremia ICD Codes: N19 - Unspecified kidney failure Status: Acute Plan Patient has slight improvement in the Creatinine. K is normal. Has good urine out put. Has advance stage 4 chronic kidney disease. I spoke to his Tariff Clerk in [place] yesterday. He has Creatinine close to 4.5. Now started on HD as has uremic symptoms with encephalopathy and confusion. Follow the urine out put and BMP and HD as needed. Naeem Osullivan MD Dec 17, 2016 16:34
[2016-12-17] MEDS: HEPARIN SODIUM - IV 10,000 UNITS/10 ML VIAL PRN (16:50)
[2016-12-17] MEDS: SODIUM CHLOR 0.9% 1000 ML INJ 1,000 ML IV PRN (16:50)
[2016-12-17] MEDS: GENTAMICIN SULFATE (DIALYSIS USE ONLY) 20 MG/2 ML VIAL IV PRN (16:50)
[2016-12-17] MEDS: LABETALOL HCL 100 MG TAB PO SCH (20:20)
[2016-12-17 21:38] LABS: HEMOGLOBIN A1a 2.2 %; HEMOGLOBIN A1b 1.2 %; HEMOGLOBIN Ao 76.8 %; HEMOGLOBIN F 1.6 %; HEMOGLOBIN LA1C 2.6 %; HEMOGLOBIN P3 5.3 %
[2016-12-17] MEDS: ACETAMINOPHEN/HYDROcodone 325 MG/10 MG TAB PO PRN (22:22)
--- NOTE | 2016-12-17 22:30 | MG ---
cc: HAMZAH MARMOLEJO MD Lab No: Date: 12/17/16 Age: 61 Sex: M Race: DATE OF [address] Fabian MEDICAL HISTORY History of hypercholesteremia, hypertension, diabetes mellitus, congestive heart failure, chronic pain, admitted for hypoglycemia and shakes, felt lightheaded. MEDICATIONS 1. Procardia. 2. Vitamin D. 3. Coreg. 4. Senna. 5. Insulin Aspart. DESCRIPTION: This is a follow up EEG recording. There is generalized background slowing of 5- 6 Hz theta activity. During the recording there are intermittent triphasic waves. There are spike and wave activity and occasional sharp waves bilaterally, at times correlate with body jerking as notated by the maintenance service technician. Hyperventilation was not done. Photic stimulation did not elicit a driving response. INTERPRETATION This is an abnormal awake EEG. There is background slowing that may indicate an encephalopathic pattern that may be related to a metabolic abnormality. Intermittent triphasic waves were noted during the EEG recording that may indicate a metabolic encephalopathy. There are intermittent spike and wave and sharp activity that are epileptogenic in nature found during the recording. There were no electrographic seizure or ictal activity. Clinical correlation is recommended. Hamzah Marmolejo MD RGO/EO /10:09 PM /10:15 PM [facility]
[2016-12-18] VITALS (8 sets, daily range): BP systolic 155–192; BP diastolic 80–90; PULSE 70–82; RESP 18–22; TEMP 97.3–98.8; O2SAT 96–100
[2016-12-18] MEDS: INSULIN ASPART SUPPLEMENTAL SCALE SQ SCH ×4 (06:15→21:33)
[2016-12-18] MEDS: ACETAMINOPHEN/HYDROcodone 325 MG/10 MG TAB PO PRN (06:16)
[2016-12-18] MEDS: SODIUM CHLORIDE 0.9% FLUSH 10 ML FLUSH IV FLUSH SCH ×2 (09:12→21:00)
[2016-12-18] MEDS: DOCUSATE SODIUM 50 MG/SENNA 8.6 MG TAB PO SCH ×2 (09:13→21:34)
[2016-12-18] MEDS: CALCIUM/VITAMIN D 250 MG/125 U TAB PO SCH ×2 (09:13→21:34)
[2016-12-18] MEDS: CARVEDILOL 12.5 MG TAB PO SCH ×2 (09:13→21:34)
[2016-12-18] MEDS: LABETALOL HCL 100 MG TAB PO SCH ×2 (09:13→21:34)
[2016-12-18] MEDS: GABAPENTIN 100 MG CAP PO SCH (09:14)
[2016-12-18] MEDS: NIFEdipine 60 MG SUSTAINED RELEASE TAB PO SCH (09:14)
--- NOTE | 2016-12-18 09:35 | HHI.PR ---
Subjective Remarks Follow up for acute on CKD, hypocalcemia, body jerking movements. Patient is resting in bed. Her no acute concerns. Denies any chest pain, shortness of breath, fever or chills. Objective Vitals Vital Signs Date Time Temp Pulse Resp B/P (MAP) Pulse Ox O2 Delivery O2 Flow Rate FiO2 12/18/16 09:04 97.3 72 19 183/89 (120) 96 12/18/16 06:08 160/82 (108) 12/18/16 05:05 188/86 (120) 178/90 (119) 12/18/16 04:52 98.5 82 18 192/84 (120) 100 12/18/16 03:04 100 21 12/17/16 23:25 18 12/17/16 22:40 98.7 82 19 99 12/17/16 22:08 162/78 (106) 12/17/16 19:59 98.4 65 20 () 99 12/17/16 18:10 98.5 77 20 182/89 (120) 100 12/17/16 11:51 160/90 (113) 12/17/16 11:28 98.3 82 21 200/91 (127) 95 12/17/16 09:59 96 21 I/O 12/17/16 12/17/16 12/17/16 12/18/16 12/18/16 12/18/16 06:59 14:59 22:59 06:59 14:59 22:59 Intake Total 480 ml 0 ml 120 ml Output Total 1350 ml 4900 ml 240 ml Balance -870 ml -4900 ml -120 ml Intake Oral 480 ml 0 ml 120 ml Output Urine Total 1350 ml 1900 ml 240 ml Hemodialysis 3000 ml Bladder Scan Volume Amount 707 ml Result Diagram: 12/17/16 0652 12/17/16 0652 Imaging Last Impressions Catheter Placement X-Ray 12/17/16 0000 Signed Impressions: Service Date/Time: Saturday, December 17, 2016 13:13 - CONCLUSION: Uncomplicated right internal jugular vein PermaCath placement as above. Valente East Jr., MD Chest X-Ray 12/16/16 0458 Signed Impressions: Service Date/Time: Friday, December 16, 2016 05:38 - CONCLUSION: 1. No acute findings. Minimal dependent atelectasis in the lungs. Herb Grijalva MD Renal Ultrasound 12/16/16 0000 Signed Impressions: Service Date/Time: Friday, December 16, 2016 13:16 - CONCLUSION: 1. Echogenic kidneys which can be seen with medical renal disease. 2. Urinary bladder decompressed by Rodriguez catheter. Jeffrey Amor MD Objective Remarks GENERAL: Alert, NAD. SKIN: Warm and dry. HEAD: Normocephalic. EYES: No scleral icterus. No injection or drainage. NECK: Supple, trachea midline. No JVD or lymphadenopathy. CARDIOVASCULAR: Regular rate and rhythm without murmurs, gallops, or rubs. RESPIRATORY: Breath sounds equal bilaterally. No accessory muscle use. GASTROINTESTINAL: Abdomen soft, non-tender, nondistended. MUSCULOSKELETAL: No cyanosis, or edema. BACK: Nontender without obvious deformity. No CVA tenderness. Procedures EEG 12/16/2016 INTERPRETATION This is an abnormal awake EEG. There is frontal intermittent rhythmic delta activity (FIRDA). There is generalized and background slowing that may indicate an encephalopathic pattern. The triphasic waves may be related to metabolic encephalopathy. There are intermittent epileptogenic activity during the recording. There was no electrographic seizure. Clinical correlation is recommended. 12/17/2016 [facility] INTERPRETATION This is an abnormal awake EEG. There is background slowing that may indicate an encephalopathic pattern that may be related to a metabolic abnormality. Intermittent triphasic waves were noted during the EEG recording that may indicate a metabolic encephalopathy. There are intermittent spike and wave and sharp activity that are epileptogenic in nature found during the recording. There were no electrographic seizure or ictal activity. Clinical correlation is recommended. A/P Problem List: (1) Rhabdomyolysis ICD Code: M62.82 - Rhabdomyolysis (2) Acute metabolic encephalopathy ICD Code: G93.41 - Metabolic encephalopathy (3) Renal failure (ARF), acute on chronic ICD Code: N17.9 - Acute kidney failure, unspecified; N18.9 - Chronic kidney disease, unspecified Status: Acute (4) Acute urinary retention ICD Code: R33.8 - Other retention of urine Status: Acute (5) Uremia ICD Code: N19 - Unspecified kidney failure Status: Acute Assessment and Plan 61-year-old male visiting from [place] with history of diabetes mellitus, hypertension, chronic kidney disease unknown baseline, hyperlipidemia, CHF, presents with a 2 day history of body jerking/twitching. Acute Renal Failure: with hx of CKD, unknown baseline however has been discussing with his sba business development officer in [place] regarding starting dialysis. BUN 92, Cr 8.54, GFR 8 upon arrival; only previous labs available is Cr 1.2 in 2001. - Creatinine is slightly improved. Patient underwent dialysis yesterday. Probable dialysis today as well. - avoid nephrotoxins, holding patient's Losartan - renal U/S is consistent with medical renal disease. Urinary Retention: patient with post void residual over 700cc in the ED, Rodriguez placed. - continue Rodriguez Metabolic Encephalopathy: suspect secondary to ARF as above. +uremia, + hyperammonemia. - Expect improvements with dialysis. - monitor neuro checks - EEG is abnormal. Repeat EEG is also abnormal. We'll consult neurology. - BMP pending this morning. Acute Hypocalcemia with Tetany: Protein Corrected Caclium 6.9. Patient's main complaint is full body jerks/twitches x2 days. Suspect secondary to hypocalcemia -Given IV Calcium Gluconate x2g. Calcium improved to 8.1 corrected. - magnesium 2.7. -Monitor on telemetry Rhabdomyolysis: with renal failure as above. CPK 1302 --> 760. Diabetes Mellitus: with hypoglycemia. -holding patient's insulin -monitor Accu-checks, cover with SSI Hypertension - continue Labetalol 100mg Q12hrs, Nifedipine 60mg Qday. Full code. SCDs. Discussed with patient's . If neurology and nephrology clears for discharge , patient can be discharged today or tomorrow. Mahi Fabian DO Dec 18, 2016 09:35
[2016-12-18 12:58] LABS: BICARBONATE 26.3 MEQ/L (21.0-32.0); POTASSIUM 4.2 MEQ/L (3.5-5.1)
--- NOTE | 2016-12-18 15:30 | MB ---
cc: HEATH YODER M.D. DATE OF CONSULTATION: 12/18/2016 DATE OF : 1955 REASON FOR CONSULTATION Seizure, possibly due to hypocalcemia, abnormal EEG. HISTORY OF PRESENT ILLNESS The patient is a 61-year-old man from [place] with a history of diabetes, hypertension, chronic renal disease, hyperlipidemia, CHF, comes in with a history of body jerking, twitching, confused. Neurology is asked to evaluate him for possible seizures. PAST MEDICAL HISTORY His past medical history as stated. PAST SURGICAL HISTORY Denies. FAMILY HISTORY Noncontributory. SOCIAL HISTORY Visiting from [place], he is . PHYSICAL EXAMINATION VITAL SIGNS: Temperature is 98.6, pulse 76, respiratory rate 22, blood pressure 160/80, sating at 100% on room air. NEURO: He is awake and alert but slow to respond, somewhat confused. He knows he is in the hospital. His speech otherwise is fluent. His pupils are reactive. His face is symmetrical. Motor shultz he seems to move everything equally. I do not see any drift or leg lag. Does not follow for cerebellar. Toes withdraw. DTRs are trace. Sensory seems to be intact. Gait is withheld. LABORATORY DATA CBC hemoglobin is 9.5. Chemistries going back to earlier ones since he came in with a calcium of 7.2 corrected to 6.9, currently his calcium is 8.5, hemoglobin A1c is 10.3. His random glucose is 425. His BUN is 68, creatinine 5.05, GFR 14. He had a GFR on admission of 8. CK 760 which is improving from 1302. Urine shows trace occult blood, culture was not indicated. Toxicology beta hydroxybutyrate 0.13. Serology reactive for hepatitis C. IMAGING STUDIES Chest x-ray shows no acute findings, minimal atelectasis in the lungs. Renal ultrasound shows echogenic kidneys that can be seen in medical renal disease, urinary bladder has a catheter in it. EEG On 12/16, that showed slowing of the background, some triphasics, occasional spikes and sharps, some frontal intermittent rhythmic delta. His recent EEG from the following day shows abnormality while he was awake, background slowing, encephalopathic, intermittent spike and waves that are epileptogenic in nature. IMPRESSION 61-year-old man with encephalopathy likely due to metabolic derangement but having what looks like spike and waves and discharges on EEG concerning for seizure-like events. Certainly this can be from his renal parameters but his calcium now has normalized. Allergy-shultz he does not have any allergies to medication. He is now only on Gabapentin 200 mg daily but I am thinking that it is likely more from him being diabetic and having some neuropathy. I am going to go ahead and start him on some antiseizure medication, repeat an EEG tomorrow and depending on how he is doing further recommendations, continue current care as well with neuro checks and seizure precautions. MD LESLEY Mckeon/TLL /2:36 PM /3:10 PM
--- NOTE | 2016-12-18 17:17 | HHI.NPPN ---
Subjective History of Present Illness 61-year-old male with past medical history of hypertension, diabetes mellitus, chronic kidney disease, hyperlipidemia, ischemic heart disease, congestive heart failure, came with jerking movements of upper arms and shoulder off and on. I was called to see the patient because of high BUN and creatinine. The patient has known history of chronic kidney disease. He has been following with his java support engineer in [place]. Additional Remarks Patient seen during HD, alert, feeling better, no SOB. Review of Systems General Constitutional: Fatigue Respiratory Lungs: SOB, Wheeze Cardiovascular Cardiac: SCOTT Objective Data Data 12/18/16 12/19/16 19:00 07:00 Intake Total 120 ml Output Total 240 ml Balance -120 ml Intake Oral 120 ml Output Urine Total 240 ml Vital Signs Date Time Temp Pulse Resp B/P (MAP) Pulse Ox O2 Delivery O2 Flow Rate FiO2 12/18/16 15:34 98.7 71 18 179/86 (117) 97 12/18/16 11:35 98.6 76 22 160/80 (106) 100 12/18/16 09:04 97.3 72 19 183/89 (120) 96 12/18/16 06:08 160/82 (108) 12/18/16 05:05 188/86 (120) 178/90 (119) 12/18/16 04:52 98.5 82 18 192/84 (120) 100 12/18/16 03:04 100 21 12/17/16 23:25 18 12/17/16 22:40 98.7 82 19 99 12/17/16 22:08 162/78 (106) 12/17/16 19:59 98.4 65 20 () 99 12/17/16 18:10 98.5 77 20 182/89 (120) 100 -: 12/17/16 0652 12/18/16 1205 Physical Exam General Appearance: No Acute Distress, Comfortable Eyes Eye Exam: Pupils Equal Throat Throat Exam: Oral Mucosa [place] & Moist Pulmonary Resp Exam: Breath Sounds Equal, No Distress, Rhonchi, Decreased Bases Cardiology CV Exam: Regular, Normal Sinus Rhythm Extremeties Extremities Exam: Moderate Edema, Pitting Edema Neurologic Neuro Exam: Alert, Awake Psychiatric Psych Exam: Appropriate Responses Assessment/Plan Assessment Summary: ANTWON/Acute Renal Failure, Anemia of CKD, Hypertension, CKD Stage IV Problem List: (1) Stage 4 chronic kidney disease ICD Codes: N18.4 - Chronic kidney disease, stage 4 (severe) (2) Acute urinary retention ICD Codes: R33.8 - Other retention of urine Status: Acute (3) Renal failure (ARF), acute on chronic ICD Codes: N17.9 - Acute kidney failure, unspecified; N18.9 - Chronic kidney disease, unspecified Status: Acute (4) Rhabdomyolysis ICD Codes: M62.82 - Rhabdomyolysis (5) Acute metabolic encephalopathy ICD Codes: G93.41 - Metabolic encephalopathy (6) Uremia ICD Codes: N19 - Unspecified kidney failure Status: Acute Plan Patient has slight improvement in the Creatinine. K is normal. Has good urine out put. Has advance stage 4 chronic kidney disease. I spoke to his Tomato Paste Maker in [place] yesterday. He has Creatinine close to 4.5. started on HD as has uremic symptoms with encephalopathy and confusion. HD today and remove fluid as tolerated. Naeem Osullivan MD Dec 18, 2016 17:17
[2016-12-18] MEDS: LACOSAMIDE 50 MG TAB PO SCH (21:34)
[2016-12-19] MEDS: ACETAMINOPHEN/HYDROcodone 325 MG/10 MG TAB PO PRN (02:00)
[2016-12-19 04:03] VITALS: BP 177/88; PULSE 76; RESP 18; TEMP 98.5; O2SAT 96
[2016-12-19] MEDS: INSULIN ASPART SUPPLEMENTAL SCALE SQ SCH ×4 (07:33→21:00)
[2016-12-19 07:58] VITALS: BP 149/79; PULSE 80; RESP 20; TEMP 99.2; O2SAT 96
--- NOTE | 2016-12-19 10:11 | HHI.PR ---
Subjective Remarks patient doing great- MS - normal denies any complains of pain, nausea or vomiting barry draining clear urine Objective Vitals Vital Signs Date Time Temp Pulse Resp B/P (MAP) Pulse Ox O2 Delivery O2 Flow Rate FiO2 12/19/16 07:58 99.2 80 20 149/79 (102) 96 12/19/16 05:36 18 12/19/16 04:03 98.5 76 18 177/88 (117) 96 12/18/16 23:55 98.8 70 18 155/85 (108) 98 12/18/16 15:34 98.7 71 18 179/86 (117) 97 12/18/16 11:35 98.6 76 22 160/80 (106) 100 I/O 12/18/16 12/18/16 12/18/16 12/19/16 12/19/16 12/19/16 06:59 14:59 22:59 06:59 14:59 22:59 Intake Total 120 ml 200 ml Output Total 240 ml 3000 ml 300 ml Balance -120 ml -2800 ml -300 ml Intake Oral 120 ml 200 ml Output Urine Total 240 ml 300 ml Hemodialysis 3000 ml # Bowel Movements 1 Result Diagram: 12/17/16 0652 12/18/16 1205 Imaging Last Impressions Catheter Placement X-Ray 12/17/16 0000 Signed Impressions: Service Date/Time: Saturday, December 17, 2016 13:13 - CONCLUSION: Uncomplicated right internal jugular vein PermaCath placement as above. Valente East Jr., MD Chest X-Ray 12/16/16 0458 Signed Impressions: Service Date/Time: Friday, December 16, 2016 05:38 - CONCLUSION: 1. No acute findings. Minimal dependent atelectasis in the lungs. Herb Grijalva MD Renal Ultrasound 12/16/16 0000 Signed Impressions: Service Date/Time: Friday, December 16, 2016 13:16 - CONCLUSION: 1. Echogenic kidneys which can be seen with medical renal disease. 2. Urinary bladder decompressed by Barry catheter. Jeffrey Amor MD Objective Remarks awake and alert, NAD oriented x 3 anicteric right - VAS cath in place lungs nor ales regular rhythm abdomen soft, nontender extremities no edema Procedures EEG 12/16/2016 INTERPRETATION This is an abnormal awake EEG. There is frontal intermittent rhythmic delta activity (FIRDA). There is generalized and background slowing that may indicate an encephalopathic pattern. The triphasic waves may be related to metabolic encephalopathy. There are intermittent epileptogenic activity during the recording. There was no electrographic seizure. Clinical correlation is recommended. 12/17/2016 EEG INTERPRETATION This is an abnormal awake EEG. There is background slowing that may indicate an encephalopathic pattern that may be related to a metabolic abnormality. Intermittent triphasic waves were noted during the EEG recording that may indicate a metabolic encephalopathy. There are intermittent spike and wave and sharp activity that are epileptogenic in nature found during the recording. There were no electrographic seizure or ictal activity. Clinical correlation is recommended. Urinary Catheter: Yes Assessment to: Remove Date of Removal: Dec 19, 2016 A/P Problem List: (1) Rhabdomyolysis ICD Code: M62.82 - Rhabdomyolysis (2) Acute metabolic encephalopathy ICD Code: G93.41 - Metabolic encephalopathy (3) Renal failure (ARF), acute on chronic ICD Code: N17.9 - Acute kidney failure, unspecified; N18.9 - Chronic kidney disease, unspecified Status: Acute (4) Acute urinary retention ICD Code: R33.8 - Other retention of urine Status: Acute (5) Uremia ICD Code: N19 - Unspecified kidney failure Status: Acute Assessment and Plan 61-year-old male visiting from [place] with history of diabetes mellitus, hypertension, chronic kidney disease unknown baseline, hyperlipidemia, CHF, presents with a 2 day history of body jerking/twitching. Acute Renal Failure: with hx of CKD, had HD x 2 days in a row check BMP now - avoid nephrotoxins, holding patient's Losartan - renal U/S is consistent with medical renal disease. Urinary Retention: patient with post void residual over 700cc in the ED, Barry placed. - continue Barry per patient and - no history of retention DC barry- check voiding Change in MS secondary to Uremic Encephalopathy:- improved MS- back to baseline Possible SZ - EKG with some activity EEG MS improved with HD - seen by Neurology- started on Vimpat Acute Hypocalcemia with Tetany: - corrected Patient's main complaint is full body jerks/twitches x2 days. Suspect secondary to hypocalcemia- Level corrected -Given IV Calcium Gluconate x2g. Calcium improved to 8.1 corrected. - magnesium 2.7. - Rhabdomyolysis: with renal failure as above. CPK 1302 --> 760. recheck today possible Rhabdom from tetany or sz Diabetes Mellitus: with hypoglycemia. -holding patient's insulin -monitor Accu-checks, cover with SSI start on his 70/30 10 units SQ units bid at home was on 50 bid Hypertension - continue Labetalol 100mg Q12hrs, Nifedipine 60mg Qday. Known history of hepatitis C.- d/w patient and Full code. SCDs. Discussed with patient's . If neurology and nephrology clears for discharge, patient can be discharged today or tomorrow. will ask toassist- with faxing report to his plc programmer/HD center in [place] to continue HD there- has a flight back tomorrow - [place] Deon Snowden MD Dec 19, 2016 10:11
[2016-12-19] MEDS: GABAPENTIN 100 MG CAP PO SCH (10:57)
[2016-12-19] MEDS: DOCUSATE SODIUM 50 MG/SENNA 8.6 MG TAB PO SCH ×2 (10:57→21:00)
[2016-12-19] MEDS: CARVEDILOL 12.5 MG TAB PO SCH ×2 (10:57→21:27)
[2016-12-19] MEDS: CALCIUM/VITAMIN D 250 MG/125 U TAB PO SCH ×2 (10:58→21:26)
[2016-12-19] MEDS: SODIUM CHLORIDE 0.9% FLUSH 10 ML FLUSH IV FLUSH SCH ×2 (10:58→21:28)
[2016-12-19] MEDS: LABETALOL HCL 100 MG TAB PO SCH ×2 (10:58→21:27)
[2016-12-19] MEDS: NIFEdipine 60 MG SUSTAINED RELEASE TAB PO SCH (10:58)
[2016-12-19] MEDS: LACOSAMIDE 50 MG TAB PO SCH ×2 (10:58→21:26)
[2016-12-19 11:42] VITALS: BP 183/89; PULSE 79; RESP 21; TEMP 98.7; O2SAT 96
[2016-12-19 11:58] LABS: BICARBONATE 28.3 MEQ/L (21.0-32.0); POTASSIUM 3.8 MEQ/L (3.5-5.1)
[2016-12-19 16:16] VITALS: BP 141/80; PULSE 75; RESP 20; TEMP 98.5; O2SAT 99
--- NOTE | 2016-12-19 17:31 | MG ---
cc: HAMZAH MARMOLEJO MD Lab No: Date: 12/19/2016 Age: Sex: M Race: DATE OF : [address] Martinez MEDICAL HISTORY Hypercholesteremia, hypertension, diabetes, congestive heart failure, chronic pain admitted for hypoglycemia, and shakes. MEDICATIONS: 1. Vimpat 2. gabapentin 3. Trandate 4. Heparin 5. Benadryl 6. Procardia. 7. Catapres 8. insulin 9. aspart 10. [place]. DESCRIPTION This is a follow up EEG.The background activity is 5-6 Hz theta, symmetrical. Hyperventilation was not done. Photic stimulation did not elicit driving response. During the recording there is generalized slowing of low voltage theta. There were no electrographic seizures or epileptiform discharges noted. INTERPRETATION: The generalized slowing may indicate an encephalopathy. There is improvement in the EEG with no evidence of triphasic waves or epileptiform discharges. Clinical correlation is recommended. Hamzah Marmolejo MD [facility]/ /5:19 PM /5:25 PM [facility]
[2016-12-19] MEDS: INSULIN ASPAR PROT 70/30 1,000 UNITS/10 ML VIAL SQ SCH ×2 (18:37→22:24)
[2016-12-19 20:00] VITALS: BP 132/72; PULSE 73; RESP 20; TEMP 98.3; O2SAT 99
--- NOTE | 2016-12-19 20:19 | HHI.NPPN ---
Subjective History of Present Illness 61-year-old male with past medical history of hypertension, diabetes mellitus, chronic kidney disease, hyperlipidemia, ischemic heart disease, congestive heart failure, came with jerking movements of upper arms and shoulder off and on. I was called to see the patient because of high BUN and creatinine. The patient has known history of chronic kidney disease. He has been following with his electric clock mechanic in [place]. Additional Remarks Patient is alert, feeling better, no SOB. Review of Systems General Constitutional: Fatigue Respiratory Lungs: SOB, Wheeze Cardiovascular Cardiac: SCOTT Objective Data Data 12/19/16 12/20/16 19:00 07:00 Intake Total 120 ml Output Total 240 ml Balance -120 ml Intake Oral 120 ml Output Urine Total 240 ml Vital Signs Date Time Temp Pulse Resp B/P (MAP) Pulse Ox O2 Delivery O2 Flow Rate FiO2 12/19/16 16:16 98.5 75 20 141/80 (100) 99 12/19/16 11:42 98.7 79 21 183/89 (120) 96 12/19/16 07:58 99.2 80 20 149/79 (102) 96 12/19/16 05:36 18 12/19/16 04:03 98.5 76 18 177/88 (117) 96 12/18/16 23:55 98.8 70 18 155/85 (108) 98 -: 12/17/16 0652 12/19/16 1104 Physical Exam General Appearance: No Acute Distress, Comfortable Eyes Eye Exam: Pupils Equal Throat Throat Exam: Oral Mucosa [place] & Moist Pulmonary Resp Exam: Breath Sounds Equal, No Distress, Rhonchi, Decreased Bases Cardiology CV Exam: Regular, Normal Sinus Rhythm Extremeties Extremities Exam: Moderate Edema, Pitting Edema Neurologic Neuro Exam: Alert, Awake Psychiatric Psych Exam: Appropriate Responses Assessment/Plan Assessment Summary: ANTWON/Acute Renal Failure, Anemia of CKD, Hypertension, CKD Stage IV Problem List: (1) Stage 4 chronic kidney disease ICD Codes: N18.4 - Chronic kidney disease, stage 4 (severe) (2) Acute urinary retention ICD Codes: R33.8 - Other retention of urine Status: Acute (3) Renal failure (ARF), acute on chronic ICD Codes: N17.9 - Acute kidney failure, unspecified; N18.9 - Chronic kidney disease, unspecified Status: Acute (4) Rhabdomyolysis ICD Codes: M62.82 - Rhabdomyolysis (5) Acute metabolic encephalopathy ICD Codes: G93.41 - Metabolic encephalopathy (6) Uremia ICD Codes: N19 - Unspecified kidney failure Status: Acute Plan Patient has slight improvement in the Creatinine. K is normal. Has good urine out put. Has advance stage 4 chronic kidney disease. I spoke to his Charge Master Coordinator in [place] yesterday. He has Creatinine close to 4.5. started on HD as has uremic symptoms with encephalopathy and confusion. HD done yesterday, tolerated well. HD again in AM. Possible D/C after the HD tomorrow. To continue HD at [place] with his Charge Master Coordinator. Naeem Osullivan MD Dec 19, 2016 20:19
[2016-12-20] VITALS: BP 136/82; PULSE 65; RESP 18; TEMP 98.5; O2SAT 98
[2016-12-20 04:00] VITALS: BP 138/80; PULSE 66; RESP 18; TEMP 99; O2SAT 99
[2016-12-20] MEDS: INSULIN ASPART SUPPLEMENTAL SCALE SQ SCH ×2 (06:29→10:39)
[2016-12-20] MEDS: SODIUM CHLORIDE 0.9% FLUSH 10 ML FLUSH IV FLUSH SCH (08:10)
[2016-12-20] MEDS: LACOSAMIDE 50 MG TAB PO SCH (08:11)
[2016-12-20] MEDS: CARVEDILOL 12.5 MG TAB PO SCH (08:11)
[2016-12-20] MEDS: NIFEdipine 60 MG SUSTAINED RELEASE TAB PO SCH (08:11)
[2016-12-20] MEDS: DOCUSATE SODIUM 50 MG/SENNA 8.6 MG TAB PO SCH (08:11)
[2016-12-20] MEDS: CALCIUM/VITAMIN D 250 MG/125 U TAB PO SCH (08:12)
[2016-12-20] MEDS: LABETALOL HCL 100 MG TAB PO SCH (08:12)
[2016-12-20] MEDS: GABAPENTIN 100 MG CAP PO SCH (08:13)
[2016-12-20 08:16] VITALS: BP 168/85; PULSE 66; RESP 20; TEMP 98.7; O2SAT 99
--- NOTE | 2016-12-20 08:42 | HHI.PR ---
Subjective Remarks awake and alert, MS baseline- marked improvement patient feels great feels same- hoping to get out of here to make it to their flight this 5 pm back to [place] patient voiding very well spontaneously Objective Vitals Vital Signs Date Time Temp Pulse Resp B/P (MAP) Pulse Ox O2 Delivery O2 Flow Rate FiO2 12/20/16 08:16 98.7 66 20 168/85 (112) 99 12/20/16 04:00 99.0 66 18 138/80 (99) 99 12/20/16 00:00 98.5 65 18 136/82 (100) 98 12/19/16 20:00 98.3 73 20 132/72 (92) 99 12/19/16 16:16 98.5 75 20 141/80 (100) 99 12/19/16 11:42 98.7 79 21 183/89 (120) 96 I/O 12/19/16 12/19/16 12/19/16 12/20/16 12/20/16 12/20/16 07:00 15:00 23:00 07:00 15:00 23:00 Intake Total 120 ml 240 ml Output Total 300 ml 240 ml Balance -300 ml -120 ml 240 ml Intake Oral 120 ml 240 ml Output Urine Total 300 ml 240 ml # Voids 1 1 # Bowel Movements 1 Result Diagram: 12/17/16 0652 12/19/16 1104 Imaging Last Impressions Catheter Placement X-Ray 12/17/16 0000 Signed Impressions: Service Date/Time: Saturday, December 17, 2016 13:13 - CONCLUSION: Uncomplicated right internal jugular vein PermaCath placement as above. Valente East Jr., MD Chest X-Ray 12/16/16 0458 Signed Impressions: Service Date/Time: Friday, December 16, 2016 05:38 - CONCLUSION: 1. No acute findings. Minimal dependent atelectasis in the lungs. Herb Grijalva MD Renal Ultrasound 12/16/16 0000 Signed Impressions: Service Date/Time: Friday, December 16, 2016 13:16 - CONCLUSION: 1. Echogenic kidneys which can be seen with medical renal disease. 2. Urinary bladder decompressed by Barry catheter. Jeffrey Amor MD Objective Remarks awake and alert, NAD oriented x 3 anicteric right - VAS cath in place lungs nor rales regular rhythm abdomen soft, nontender extremities no edema Procedures Last Impressions Catheter Placement X-Ray 12/17/16 0000 Signed Impressions: Service Date/Time: Saturday, December 17, 2016 13:13 - CONCLUSION: Uncomplicated right internal jugular vein PermaCath placement as above. Valente East Jr., MD Chest X-Ray 12/16/16 0458 Signed Impressions: Service Date/Time: Friday, December 16, 2016 05:38 - CONCLUSION: 1. No acute findings. Minimal dependent atelectasis in the lungs. Herb Grijalva MD Renal Ultrasound 12/16/16 0000 Signed Impressions: Service Date/Time: Friday, December 16, 2016 13:16 - CONCLUSION: 1. Echogenic kidneys which can be seen with medical renal disease. 2. Urinary bladder decompressed by Barry catheter. Jeffrey Amor MD EEG 12/16/2016 INTERPRETATION This is an abnormal awake EEG. There is frontal intermittent rhythmic delta activity (FIRDA). There is generalized and background slowing that may indicate an encephalopathic pattern. The triphasic waves may be related to metabolic encephalopathy. There are intermittent epileptogenic activity during the recording. There was no electrographic seizure. Clinical correlation is recommended. 12/17/2016 EEG INTERPRETATION This is an abnormal awake EEG. There is background slowing that may indicate an encephalopathic pattern that may be related to a metabolic abnormality. Intermittent triphasic waves were noted during the EEG recording that may indicate a metabolic encephalopathy. There are intermittent spike and wave and sharp activity that are epileptogenic in nature found during the recording. There were no electrographic seizure or ictal activity. Clinical correlation is recommended. Date of Removal: Dec 19, 2016 A/P Problem List: (1) Rhabdomyolysis ICD Code: M62.82 - Rhabdomyolysis (2) Acute metabolic encephalopathy ICD Code: G93.41 - Metabolic encephalopathy (3) Renal failure (ARF), acute on chronic ICD Code: N17.9 - Acute kidney failure, unspecified; N18.9 - Chronic kidney disease, unspecified Status: Acute (4) Acute urinary retention ICD Code: R33.8 - Other retention of urine Status: Acute (5) Uremia ICD Code: N19 - Unspecified kidney failure Status: Acute Assessment and Plan 61-year-old male visiting from [place] with history of diabetes mellitus, hypertension, chronic kidney disease unknown baseline, hyperlipidemia, CHF, presents with a 2 day history of body jerking/twitching. Acute Renal Failure: with hx of CKD, ongoing HD - avoid nephrotoxins, holding patient's Losartan - renal U/S is consistent with medical renal disease. Urinary Retention: patient with post void residual over 700cc in the ED, Barry placed.- removed 12/19 DC barry- check voiding Change in MS secondary to Uremic Encephalopathy:- improved MS- back to baseline - Resolved Possible SZ - EKG with some activity EEG MS improved with HD - seen by Neurology- started on Vimpat -advised on adequate sleep, no driving until cleared by a neurologist on ff up Acute Hypocalcemia with Tetany: - corrected Patient's main complaint is full body jerks/twitches x2 days. Suspect secondary to hypocalcemia- Level corrected -Given IV Calcium Gluconate x2g. Calcium improved to 8.1 corrected. - magnesium 2.7. - Rhabdomyolysis: with renal failure as above. CPK 1302 --> 760. recheck today possible Rhabdom from tetany or sz Diabetes Mellitus: with hypoglycemia. -holding patient's insulin -monitor Accu-checks, cover with SSI start on his 70/30 10 units SQ units bid at home was on 50 bid Hypertension - continue Labetalol 100mg Q12hrs, Nifedipine 60mg Qday. Known history of hepatitis C.- d/w patient and Full code. SCDs. Discussed with patient's . If neurology and nephrology clears for discharge, patient can be discharged today or tomorrow. will ask CM toassist- with faxing report to his cell liner/HD center in [place] to continue HD there- has a flight back tdoay Am hoping to get his HD early this am to make the flight- I spoke with Dr. Osullivan- - may be we can get HD earlier done today if not- d/w to call neohriologist in [place] if they can get him into HD this weekend- tomorrow- we fax all the paper works there few days ago per CM Problem Qualifiers (1) Renal failure (ARF), acute on chronic: Qualified Codes: N17.9 - Acute kidney failure, unspecified; N18.9 - Chronic kidney disease, unspecified Deon Snowden MD Dec 20, 2016 08:42
[2016-12-20] MEDS ORDERED: NOVOLOGMXP SQ (09:02)
[2016-12-20] MEDS ORDERED: CALC250 PO (09:02)
[2016-12-20] MEDS ORDERED: GABA100C4 PO (09:02)
[2016-12-20] MEDS ORDERED: LABE100T2 PO (09:02)
[2016-12-20] MEDS ORDERED: NIFE60TA8 PO (09:02)
[2016-12-20] MEDS ORDERED: LACO50 PO (09:08)
--- NOTE | 2016-12-20 10:25 | HHI.DS ---
Discharge Summary Admission Date Dec 16, 2016 at 12:55 Discharge Date: Dec 20, 2016 Admitting Diagnosis Uremia, Acute Renal Failure (1) Acute metabolic encephalopathy ICD Code: G93.41 - Metabolic encephalopathy Diagnosis: Principal (2) Rhabdomyolysis ICD Code: M62.82 - Rhabdomyolysis Diagnosis: Principal (3) Renal failure (ARF), acute on chronic ICD Code: N17.9 - Acute kidney failure, unspecified; N18.9 - Chronic kidney disease, unspecified Status: Acute (4) Acute urinary retention ICD Code: R33.8 - Other retention of urine Status: Resolved (5) Uremia ICD Code: N19 - Unspecified kidney failure Status: Acute Procedures VAs cath placedment hemodialysis Brief History - From Admission Written by Jessica Cruz, acting as scribe for Dr. Fabian on 12/16/16 at 09:15. This note was transcribed by scribe ADRIAN Zapata. I, Dr. Geovany Fabian personally performed the history, physical exam, and medical decision making; and confirmed the accuracy of the information in the transcribed note. Authenticated by Dr. Geovany Fabian on 12/16/16 at 21:35. 61-year-old male visiting from [place] with history of diabetes mellitus, hypertension, chronic kidney disease unknown baseline, hyperlipidemia, CHF, presents with a 2 day history of body jerking/twitching. The patient is currently awake, alert, oriented to person, states he is in [place] but needs a lot of cues to be able to say he's in a hospital, then states the date is October or November 2016. He is a very poor historian and continuously repeats that he's here for full body jerking since Thursday 12/14 and that is why he came to the hospital. He is unable to give a timeline of events leading up to his admission. Most of the history supplemented with information from EMR. Per ER MD 's note, the patient's blood sugars have been running low for him, in the 80s- 90s. His blood sugars are normally around 150. He has felt lightheaded and shaky recently which he believes is secondary to the low blood sugars. Denies any recent decreased oral intake, nausea/vomiting, or diarrhea. According to the patient and his , he has been diagnosed with CKD, but unknown baseline. He follows with a digital printer in [place] and have discussed dialysis in the past but currently not on dialysis. While in the ER, the patient complained of some urinary retention, post void residual bladder scan done, showed over 700cc urine , therefore Barry catheter placed. The patient has no other medical complaints at this time including no fevers/chills, chest pain, shortness of breath, or abdominal pain. CBC/BMP: 12/17/16 0652 12/19/16 1104 Significant Findings Laboratory Tests Test 12/17/16 11:10 12/18/16 12:05 12/19/16 11:04 Activated Partial Thromboplast Time 21.7 SEC (24.3-30.1) Hemoglobin A1c 10.3 % (4.3-6.0) Hepatitis C Antibody REACTIVE (NEGATIVE) Blood Urea Nitrogen 68 MG/DL (7-18) 50 MG/DL (7-18) Creatinine 5.05 MG/DL (0.60-1.30) 4.46 MG/DL (0.60-1.30) Random Glucose 425 MG/DL (74-106) 368 MG/DL (74-106) Estimat Glomerular Filtration Rate 14 ML/MIN (>89) 16 ML/MIN (>89) Chloride Level 96 MEQ/L (98-107) Imaging Last Impressions Catheter Placement X-Ray 12/17/16 0000 Signed Impressions: Service Date/Time: Saturday, December 17, 2016 13:13 - CONCLUSION: Uncomplicated right internal jugular vein PermaCath placement as above. Valente East Jr., MD Chest X-Ray 12/16/16 0458 Signed Impressions: Service Date/Time: Friday, December 16, 2016 05:38 - CONCLUSION: 1. No acute findings. Minimal dependent atelectasis in the lungs. Herb Grijalva MD Renal Ultrasound 12/16/16 0000 Signed Impressions: Service Date/Time: Friday, December 16, 2016 13:16 - CONCLUSION: 1. Echogenic kidneys which can be seen with medical renal disease. 2. Urinary bladder decompressed by Barry catheter. Jeffrey Amor MD PE at Discharge awake and alert, NAD oriented x 3 anicteric right - VAS cath in place lungs nor rales regular rhythm abdomen soft, nontender extremities no edema Pt update on day of discharge awake and alert, no complains tolerating HD well voiding, no shortness of breath Hospital Course 61-year-old male visiting from [place] with history of diabetes mellitus, hypertension, chronic kidney disease unknown baseline, hyperlipidemia, CHF, presents with a 2 day history of body jerking/twitching. Acute Renal Failure: with hx of CKD, ongoing HD - avoid nephrotoxins, holding patient's Losartan - renal U/S is consistent with medical renal disease. Urinary Retention: patient with post void residual over 700cc in the ED, Barry placed.- removed 12/19 DC barry- check voiding Change in MS secondary to Uremic Encephalopathy:- improved MS- back to baseline - Resolved Possible SZ - EKG with some activity EEG MS improved with HD - seen by Neurology- started on Vimpat -advised on adequate sleep, no driving until cleared by a neurologist on ff up Acute Hypocalcemia with Tetany: - corrected Patient's main complaint is full body jerks/twitches x2 days. Suspect secondary to hypocalcemia- Level corrected -Given IV Calcium Gluconate x2g. Calcium improved to 8.1 corrected. - magnesium 2.7. - Rhabdomyolysis: with renal failure as above. CPK 1302 --> 760. recheck today possible Rhabdom from tetany or sz Diabetes Mellitus: with hypoglycemia. -holding patient's insulin -monitor Accu-checks, cover with SSI start on his 70/30 10 units SQ units bid at home was on 50 bid Hypertension - continue Labetalol 100mg Q12hrs, Nifedipine 60mg Qday. Known history of hepatitis C.- d/w patient and Full code. SCDs. Discussed with patient's . If neurology and nephrology clears for discharge, patient can be discharged today or tomorrow. will ask toassist- with faxing report to his digital printer/HD center in [place] to continue HD there- has a flight back tdoay Am hoping to get his HD early this am to make the flight- I spoke with Dr. Osullivan- - may be we can get HD earlier done today if not- d/w to call neohriologist in [place] if they can get him into HD this weekend- tomorrow- we fax all the paper works there few days ago per CM Pt Condition on Discharge: Stable Discharge Disposition: Discharge Home Discharge Time: <= 30 minutes Discharge Instructions DIET: Follow Instructions for: Renal Failure Diet Speech Therapy-Diet Recommends: Regular Activities you can perform: Weight Bearing as [place] Activities to Avoid: Strenuous Activity, Driving Other Activity Instructions: no driving till cleared by neurologist Follow up Referrals: Nephrology - 12/21/16 with tx Neurology - 12/23/16 with [place] PCP Follow-up - 2-3 Days with tx New Medications: Calcium/Vitamin D (Oyster Shell 250 mg + Vit D Tb) 250 Mg Calcium (625 Mg)-125 Unit Tablet 500 MG PO Q12HR for RF for 30 Days, #60 TAB Gabapentin (Gabapentin) 100 Mg Cap 200 MG PO DAILY for neuropathy for 30 Days, CAP Insulin Aspart Protam-Asp 70-30 Inj (Novolog Mix 70-30 Inj) 1,000 Unit/10 Ml Vial 10 UNITS SQ BID@ for dm for 30 Days, #1 INJECTION Labetalol (Labetalol) 100 Mg Tab 100 MG PO Q12HR for HTN for 30 Days, TAB Lacosamide (Vimpat) 50 Mg Tab 50 MG PO BID for sz for 30 Days, #60 TAB Nifedipine ER 24 HR (Nifedipine ER 24 HR) 60 Mg Tab 60 MG PO DAILY for HTN for 30 Days, TAB Continued Medications: Carvedilol (Carvedilol) 12.5 Mg Tab 12.5 MG PO BID, #60 TAB 0 Refills Morphine ER (Morphine ER) 30 Mg Tab 30 MG PO Q8H for Pain Management, TAB 0 Refills Discontinued Medications: Losartan (Losartan) 100 Mg Tab 100 MG PO DAILY for Blood Pressure Management, #30 TAB 0 Refills Deon Snowden MD Dec 20, 2016 10:25
--- NOTE | 2016-12-20 11:33 | HHI.NPPN ---
Subjective History of Present Illness 61-year-old male with past medical history of hypertension, diabetes mellitus, chronic kidney disease, hyperlipidemia, ischemic heart disease, congestive heart failure, came with jerking movements of upper arms and shoulder off and on. I was called to see the patient because of high BUN and creatinine. The patient has known history of chronic kidney disease. He has been following with his automobile brake bonder in [place]. Additional Remarks Patient is alert, now on HD, no SOB, on room air. Review of Systems General Constitutional: Fatigue Respiratory Lungs: SOB, Wheeze Cardiovascular Cardiac: SCOTT Objective Data Data Vital Signs Date Time Temp Pulse Resp B/P (MAP) Pulse Ox O2 Delivery O2 Flow Rate FiO2 12/20/16 08:16 98.7 66 20 168/85 (112) 99 12/20/16 04:00 99.0 66 18 138/80 (99) 99 12/20/16 00:00 98.5 65 18 136/82 (100) 98 12/19/16 20:00 98.3 73 20 132/72 (92) 99 12/19/16 16:16 98.5 75 20 141/80 (100) 99 12/19/16 11:42 98.7 79 21 183/89 (120) 96 -: 12/17/16 0652 12/19/16 1104 Physical Exam General Appearance: No Acute Distress, Comfortable Eyes Eye Exam: Pupils Equal Throat Throat Exam: Oral Mucosa [place] & Moist Pulmonary Resp Exam: Breath Sounds Equal, No Distress, Rhonchi, Decreased Bases Cardiology CV Exam: Regular, Normal Sinus Rhythm Extremeties Extremities Exam: Moderate Edema, Pitting Edema Neurologic Neuro Exam: Alert, Awake Psychiatric Psych Exam: Appropriate Responses Assessment/Plan Assessment Summary: ANTWON/Acute Renal Failure, Anemia of CKD, Hypertension, CKD Stage IV Problem List: (1) Stage 4 chronic kidney disease ICD Codes: N18.4 - Chronic kidney disease, stage 4 (severe) (2) Acute urinary retention ICD Codes: R33.8 - Other retention of urine Status: Resolved (3) Renal failure (ARF), acute on chronic ICD Codes: N17.9 - Acute kidney failure, unspecified; N18.9 - Chronic kidney disease, unspecified Status: Acute (4) Rhabdomyolysis ICD Codes: M62.82 - Rhabdomyolysis (5) Acute metabolic encephalopathy ICD Codes: G93.41 - Metabolic encephalopathy (6) Uremia ICD Codes: N19 - Unspecified kidney failure Status: Acute Plan Patient has slight improvement in the Creatinine. K is normal. Has good urine out put. Has advance stage 4 chronic kidney disease approach now end stage. I spoke to his [employer] Trawler Captain in [place] yesterday. He has Creatinine close to 4.5. started on HD as has uremic symptoms with encephalopathy and confusion. HD again now, as he will be discharge. He will start HD at [place] from Friday. The family coordinate with his Shrimp Trawler Captain there. [place] will need AVF. Explain to the patient about diet and fluid restriction. Problem Qualifiers (1) Renal failure (ARF), acute on chronic: Qualified Codes: N17.9 - Acute kidney failure, unspecified; N18.9 - Chronic kidney disease, unspecified Naeem Osullivan MD Dec 20, 2016 11:33
[2016-12-20] MEDS: GENTAMICIN SULFATE (DIALYSIS USE ONLY) 20 MG/2 ML VIAL IV PRN (13:30)
[2016-12-20] MEDS: HEPARIN SODIUM - IV 10,000 UNITS/10 ML VIAL PRN (13:30)
[2016-12-20] MEDS: SODIUM CHLOR 0.9% 1000 ML INJ 1,000 ML IV PRN (13:30)
== END 2016-12-20 14:45 | disposition home or self-care (01) | DRG 70 ==
LOC: NEPE 03:47 → NEDA 06:26 → INTOOBSV 06:26 → NEDH 10:09 → OBSVTOIN 12:55 → NEPHCDU 16:27 → N05A 12-19 14:36
PROVIDERS: ADMIT Internal Medicine; ATTEND Internal Medicine
PROC: 5A1D60Z (ICD-10-PCS; principal; 2016-12-17)
DX: G93.41 Metabolic encephalopathy (principal); N18.6 End stage renal disease; N17.9 Acute kidney failure, unspecified; M62.82 Rhabdomyolysis; E11.22 Type 2 diabetes mellitus with diabetic chronic kidney disease; E11.40 Type 2 diabetes mellitus with diabetic neuropathy, unspecified; R56.9 Unspecified convulsions; E83.51 Hypocalcemia; I50.9 Heart failure, unspecified; I12.9 Hypertensive chronic kidney disease with stage 1 through stage 4 chronic kidney disease, or unspecified chronic kidney disease; D63.1 Anemia in chronic kidney disease; E11.649 Type 2 diabetes mellitus with hypoglycemia without coma; E78.5 Hyperlipidemia, unspecified; I25.9 Chronic ischemic heart disease, unspecified; R33.9 Retention of urine, unspecified; Z79.899 Other long term (current) drug therapy; M54.9 Dorsalgia, unspecified; G89.29 Other chronic pain
CPT/HCPCS: 36558; 51702; 71010; 76775; 76937; 77001; 80048; 80053; 80074; 81001; 82010; 82140; 82550; 82552; 82948; 83036; 83735; 84100; 85025; 85610; 85730; 90935; 93005; 95819; 96374; 99152; 99153; C1750; C1769; J0610; J0690; J1580; J1644; J1815; J2250; J3010; J3370; J7030; J7050